=== PATIENT | male | born 1955 | race Caucasian/White ===

== ENCOUNTER 2017-10-23 15:51 | Emergency (ER) | payer OTHER ==
[2015-02-02 09:41] VITALS: Ht 172.7 cm; Wt 81.6 kg
[~2017-10-23] VITALS: Ht 172.7 cm; Wt 81.6 kg
[~2017-10-23 15:51] MED LIST: ASP325 PO; FOLI-68 PO; IBU200 PO; LEVO750T44 PO; LORA-1455 PO; LORA-630 PO; METR-1 PO; MULT-1379 PO; NALT50TA15 PO; ONDA4TAB PO; SIME80TA65 PO; SIMV5TAB56 PO; THIA100T62 PO; VENL75CA58 PO
[2017-10-23] MEDS ORDERED: THIAMINE HCL(*) 200 MG/2 ML IN 100 MG, FOLIC ACID(*) 50 MG/10 ML INJ 1 MG, MULTIVITAMIN... IV ONE ×2 (16:29→16:50)
--- NOTE | 2017-10-23 16:29 | ER Report ---
History and Physical Time Seen By MD: 16:28 Hx. of Stated Complaint: PATIENT STATES HIS LAST DRINK WAS COUPLE OF HOURS AGO; PATIENT STATES THAT HE IS STARTING TO FEEL DETOX EFFECTS COMING ON AND SELF TREATMENT WASNT HELPING SO HE WANTS HELP WITH DETOX HPI/ROS CHIEF COMPLAINT: Alcohol detox HISTORY OF PRESENT ILLNESS: 62-year-old male patient presents to emergency room with complaint of needing to detox from alcohol. Patient states that he has been drinking fairly heavily for the past week. He states that he typically drinks a sixpack a week as well as a half pint to a pint of whiskey on the weekend. Patient states that he's been drinking more over the past week. He states that he will not drink and a few hours later he will feel nauseated and anxious. He will have a drink at that time. He states that he has taken Ativan in the past which seems to have helped. Patient states that he has had a episode of sobriety which lasted 3/2 years in the years [id number]. He states that since then he's been drinking steadily. He states that he would like to quit drinking and would like to be more active in AA. REVIEW OF SYSTEMS: Respiratory: No cough, no dyspnea. Cardiovascular: No chest pain, no palpitations. Gastrointestinal: No vomiting, no abdominal pain. Musculoskeletal: No back pain. Allergies: Coded Allergies: codeine (Verified Allergy, Mild, RASH, 10/23/17) ITCHING AND RASH REACTION oxycodone (Verified Allergy, Unknown, 10/23/17) itching rash Home Meds Discontinued Scripts Lorazepam (LORAZEPAM) 0.5 Mg Tablet, 0.5 MG PO Q4-6H, #10 Prov:BETY CALDWELL STRIPPER AND OPAQUER APPRENTICE 12/14/16 Ondansetron (ZOFRAN ODT) 4 Mg Tab.rapdis, 4 MG PO Q6H, #10 TAB TAKE 1 TABLET BY MOUTH EVERY 6 HOURS Prov:HARITHA HANSEN NP 06/03/16 Lorazepam (ATIVAN) 0.5 Mg Tablet, 0.5 MG PO Q4-6H, #20 TAB Prov:HARITHA HANSEN NP 06/03/16 Metronidazole (FLAGYL) 500 Mg Tablet, 500 MG PO BID, #20 TAB Prov:HARITHA HANSEN NP 06/03/16 Levofloxacin 750 Mg Tab (LEVAQUIN 750 MG TAB) 750 Mg Tablet, 750 MG PO DAILY, # 10 TAB Prov:HARITHA HANSEN STRIPPER AND OPAQUER APPRENTICE 06/03/16 Past Medical/Surgical History Patient has a past medical history of seizures related to alcohol detox, migraines, arthritis, marijuana abuse, alcohol abuse, depression. Patient has surgical history of right shoulder surgery, trigger finger, right knee surgery, Lasik surgery. Hx Smoking: No Smoking Status: Former Smoker Exposure to Second Hand Smoke?: No Hx Substance Use Disorder: Yes (marijuana) Hx Alcohol Use: Yes Constitutional Vital Sign - Last 24 Hours 10/23/17 10/23/17 10/23/17 10/23/17 15:56 15:56 16:00 16:21 Temp 98.4 Pulse 109 92 Resp 17 B/P (MAP) 163/101 (121) 163/101 153/102 (119) Pulse Ox 91 87 O2 Delivery Room Air 10/23/17 10/23/17 10/23/17 10/23/17 16:30 16:51 17:00 17:21 Pulse 90 87 B/P (MAP) 137/95 (109) 131/90 (104) Pulse Ox 87 86 10/23/17 10/23/17 10/23/17 10/23/17 17:30 17:35 18:00 18:05 Pulse 89 101 B/P (MAP) 133/72 (92) 146/91 (109) Pulse Ox 90 94 10/23/17 18:10 Pulse 94 Pulse Ox 93 Intake and Output 10/23/17 10/23/17 10/24/17 15:00 23:00 07:00 Intake Total 1015.2 ml Balance 1015.2 ml Physical Exam General Appearance: The patient is alert, has no immediate need for airway protection and no current signs of toxicity. ENT: Tympanic membranes are pearly-garg, auditory canals are patent, mucous membranes are moist. Respiratory: Chest is non tender, lungs are clear to auscultation. Cardiac: regular rate and rhythm Gastrointestinal: Abdomen is soft and non tender, no masses, bowel sounds normal. Musculoskeletal: Neck: Neck is supple and non tender. Extremities have full range of motion and are non tender. Skin: No rashes or lesions. DIFFERENTIAL DIAGNOSIS: After history and physical exam differential diagnosis was considered for alcohol abuse, alcohol dependence. Medical Decision Making Data Points Result Diagram: 10/23/17 1967 10/23/17 1649 Laboratory Hematology Test 10/23/17 16:49 10/23/17 18:16 Red Blood Count 4.88 M/uL (4.00-5.60) Mean Corpuscular Volume 102.6 fL (80.0-96.0) Mean Corpuscular Hemoglobin 34.9 pg (26.0-33.0) Mean Corpuscular Hemoglobin Concent 34.0 g/dL (32.0-36.0) Red Cell Distribution Width 13.6 % (11.5-14.5) Mean Platelet Volume 7.5 fL (7.2-11.1) Neutrophils (%) (Auto) 67.7 % (39.4-72.5) Lymphocytes (%) (Auto) 23.7 % (17.6-49.6) Monocytes (%) (Auto) 7.8 % (4.1-12.4) Eosinophils (%) (Auto) 0.5 % (0.4-6.7) Basophils (%) (Auto) 0.3 % (0.3-1.4) Nucleated RBC Relative Count (auto) 0.0 /100WBC Neutrophils # (Auto) 4.0 K/uL (2.0-7.4) Lymphocytes # (Auto) 1.4 K/uL (1.3-3.6) Monocytes # (Auto) 0.5 K/uL (0.3-1.0) Eosinophils # (Auto) 0.0 K/uL (0.0-0.5) Basophils # (Auto) 0.0 K/uL (0.0-0.1) Nucleated RBC Absolute Count (auto) 0.00 K/uL Peripheral Blood Smear No Y/N Sodium Level 141 mmol/L (137-145) Potassium Level 4.1 mmol/L (3.5-5.0) Chloride Level 100 mmol/L (98-107) Carbon Dioxide Level 20 mmol/L (22-30) Blood Urea Nitrogen 10 mg/dl (9-21) Creatinine 0.90 mg/dl (0.66-1.25) Glomerular Filtration Rate Calc > 60.0 Random Glucose 87 mg/dl (75-110) Calcium Level 8.8 mg/dl (8.4-10.2) Magnesium Level 2.0 mg/dl (1.7-2.2) Total Bilirubin 0.7 mg/dl (0.2-1.3) Aspartate Amino Transf (AST/SGOT) 75 U/L (0-35) Alanine Aminotransferase (ALT/SGPT) 56 U/L (0-56) Alkaline Phosphatase 84 U/L (0-126) Total Protein 7.8 gm/dl (6.3-8.2) Albumin 4.5 g/dl (3.5-5.0) Salicylates Level < 10 mg/L Salicylate Last Dose Date unk Acetaminophen Level < 10 ug/ml Serum Alcohol 195 mg/dl Urine Color Vianca Urine Clarity Slightly-cloudy Urine pH 5.0 pH (4.8-9.5) Urine Specific Preston 1.021 Urine Protein Negative mg/dL (NEGATIVE) Urine Glucose (UA) Negative mg/dL (NEGATIVE) Urine Ketones 80 mg/dL (NEGATIVE) Urine Blood Negative (NEGATIVE) Urine Nitrite Negative (NEGATIVE) Urine Bilirubin Negative (NEGATIVE) Urine Urobilinogen 2.0 mg/dL (0.2-1.9) Urine Leukocyte Esterase Negative (NEGATIVE) Urine RBC 1 /HPF (0-2/HPF) Urine WBC 1 /HPF (0-5/HPF) Urine Squamous Epithelial Cells Many /LPF (</=FEW) Urine Bacteria Negative /HPF (NONE-FEW) Urine Hyaline Casts Many /LPF (NONE-FEW) Urine Mucus Few /HPF (NONE-FEW) Urine Opiates Screen Negative Urine Barbiturates Screen Negative Ur Tricyclic Antidepressants Screen Negative Urine Phencyclidine Screen Negative Urine Amphetamines Screen Negative Urine Benzodiazepines Screen Negative Urine Cocaine Screen Negative Urine Cannabinoids Screen Positive Chemistry Test 10/23/17 16:49 10/23/17 18:16 White Blood Count 5.9 k/uL (4.5-11.0) Red Blood Count 4.88 M/uL (4.00-5.60) Hemoglobin 17.0 g/dL (14.0-18.0) Hematocrit 50.1 % (42.0-52.0) Mean Corpuscular Volume 102.6 fL (80.0-96.0) Mean Corpuscular Hemoglobin 34.9 pg (26.0-33.0) Mean Corpuscular Hemoglobin Concent 34.0 g/dL (32.0-36.0) Red Cell Distribution Width 13.6 % (11.5-14.5) Platelet Count 150 K/uL (150-450) Mean Platelet Volume 7.5 fL (7.2-11.1) Neutrophils (%) (Auto) 67.7 % (39.4-72.5) Lymphocytes (%) (Auto) 23.7 % (17.6-49.6) Monocytes (%) (Auto) 7.8 % (4.1-12.4) Eosinophils (%) (Auto) 0.5 % (0.4-6.7) Basophils (%) (Auto) 0.3 % (0.3-1.4) Nucleated RBC Relative Count (auto) 0.0 /100WBC Neutrophils # (Auto) 4.0 K/uL (2.0-7.4) Lymphocytes # (Auto) 1.4 K/uL (1.3-3.6) Monocytes # (Auto) 0.5 K/uL (0.3-1.0) Eosinophils # (Auto) 0.0 K/uL (0.0-0.5) Basophils # (Auto) 0.0 K/uL (0.0-0.1) Nucleated RBC Absolute Count (auto) 0.00 K/uL Peripheral Blood Smear No Y/N Glomerular Filtration Rate Calc > 60.0 Calcium Level 8.8 mg/dl (8.4-10.2) Magnesium Level 2.0 mg/dl (1.7-2.2) Total Bilirubin 0.7 mg/dl (0.2-1.3) Aspartate Amino Transf (AST/SGOT) 75 U/L (0-35) Alanine Aminotransferase (ALT/SGPT) 56 U/L (0-56) Alkaline Phosphatase 84 U/L (0-126) Total Protein 7.8 gm/dl (6.3-8.2) Albumin 4.5 g/dl (3.5-5.0) Salicylates Level < 10 mg/L Salicylate Last Dose Date unk Acetaminophen Level < 10 ug/ml Serum Alcohol 195 mg/dl Urine Color Vianca Urine Clarity Slightly-cloudy Urine pH 5.0 pH (4.8-9.5) Urine Specific Preston 1.021 Urine Protein Negative mg/dL (NEGATIVE) Urine Glucose (UA) Negative mg/dL (NEGATIVE) Urine Ketones 80 mg/dL (NEGATIVE) Urine Blood Negative (NEGATIVE) Urine Nitrite Negative (NEGATIVE) Urine Bilirubin Negative (NEGATIVE) Urine Urobilinogen 2.0 mg/dL (0.2-1.9) Urine Leukocyte Esterase Negative (NEGATIVE) Urine RBC 1 /HPF (0-2/HPF) Urine WBC 1 /HPF (0-5/HPF) Urine Squamous Epithelial Cells Many /LPF (</=FEW) Urine Bacteria Negative /HPF (NONE-FEW) Urine Hyaline Casts Many /LPF (NONE-FEW) Urine Mucus Few /HPF (NONE-FEW) Urine Opiates Screen Negative Urine Barbiturates Screen Negative Ur Tricyclic Antidepressants Screen Negative Urine Phencyclidine Screen Negative Urine Amphetamines Screen Negative Urine Benzodiazepines Screen Negative Urine Cocaine Screen Negative Urine Cannabinoids Screen Positive Toxicology Test 10/23/17 16:49 10/23/17 18:16 Salicylates Level < 10 mg/L Salicylate Last Dose Date unk Acetaminophen Level < 10 ug/ml Serum Alcohol 195 mg/dl Urine Opiates Screen Negative Urine Barbiturates Screen Negative Ur Tricyclic Antidepressants Screen Negative Urine Phencyclidine Screen Negative Urine Amphetamines Screen Negative Urine Benzodiazepines Screen Negative Urine Cocaine Screen Negative Urine Cannabinoids Screen Positive Urinalysis Test 10/23/17 18:16 Urine Color Vianca Urine Clarity Slightly-cloudy Urine pH 5.0 pH (4.8-9.5) Urine Specific Preston 1.021 Urine Protein Negative mg/dL (NEGATIVE) Urine Glucose (UA) Negative mg/dL (NEGATIVE) Urine Ketones 80 mg/dL (NEGATIVE) Urine Blood Negative (NEGATIVE) Urine Nitrite Negative (NEGATIVE) Urine Bilirubin Negative (NEGATIVE) Urine Urobilinogen 2.0 mg/dL (0.2-1.9) Urine Leukocyte Esterase Negative (NEGATIVE) Urine RBC 1 /HPF (0-2/HPF) Urine WBC 1 /HPF (0-5/HPF) Urine Squamous Epithelial Cells Many /LPF (</=FEW) Urine Bacteria Negative /HPF (NONE-FEW) Urine Hyaline Casts Many /LPF (NONE-FEW) Urine Mucus Few /HPF (NONE-FEW) ED Course/Re-evaluation ED Course Patient was admitted to exam room, history and physical were obtained. Differential diagnoses were considered. Lab work for a behavioral health admission were done. Labs were unremarkable except for the patient had an MCV of 102, was also positive for cannabis on his drug screen. An IV was started and patient received a liter of a banana bag. Patient stated that he was starting to feel nauseated and received all grams of Zofran and half milligram of Ativan which seemed to help considerably. Patient tolerated that well and was finally able to give us urine sample. Which time I did discuss the case with Dr. Smiley, psychiatrist, who agreed to accept the patient for admission with a diagnosis of alcohol dependence. Discusses patient who verbalized understanding and agreement. Decision to Disposition Date: Oct 23, 2017 Decision to Disposition Time: 19:38 Depart Departure Latest Vital Signs Vital Signs Date Time Temp Pulse Resp B/P (MAP) Pulse Ox O2 Delivery O2 Flow Rate FiO2 10/23/17 18:10 94 93 10/23/17 18:00 146/91 (109) 10/23/17 15:56 98.4 17 Room Air Impression: Primary Impression: Alcohol abuse Condition: Condition Unchanged Disposition: XFER TO [facility] Referrals: MARCELINO BATRES DO (PCP) FILIBERTO STACK Oct 23, 2017 16:29
[2017-10-23 16:56] LABS: PLATELET COUNT, AUTOMATED 150 K/uL (150-450)
[2017-10-23] MEDS ORDERED: ONDANSETRON 4 MG/2 ML VIAL IVP ONE (17:30)
[2017-10-23] MEDS ORDERED: LORazepam 2 MG/ML VIAL IVP ONE (17:30)
[2017-10-23 18:00] VITALS: BP 146/91
== END 2017-10-23 20:00 ==
LOC: ER 15:58
DX: F10.20 Alcohol dependence, uncomplicated (principal); F12.90 Cannabis use, unspecified, uncomplicated; F32.9 Major depressive disorder, single episode, unspecified
CPT/HCPCS: 80305; 80320; 80329; 81001; 83735; 84443; 85025; 99285; J2060; J2405; J3411; J3475; J7030; 82040; 82247; 82310; 82374; 82435; 82565; 82947; 84075; 84132; 84155; 84295; 84450; 84460; 84520; 96365; 96375

== ENCOUNTER 2017-10-23 19:47 | Inpatient (IN) | payer OTHER ==
[2015-02-02 09:41] VITALS: Ht 172.7 cm; Wt 81.6 kg
[~2017-10-23] VITALS: Ht 172.7 cm; Wt 81.6 kg
[2017-10-23 20:29] VITALS: BP 150/88
[2017-10-23] MEDS ORDERED: DIAZEPAM 10 MG TAB PO PRN ×2 (21:30)
[2017-10-23] MEDS ORDERED: ACETAMINOPHEN 325 MG TAB PO PRN (22:10)
[2017-10-23] MEDS ORDERED: MAG HYD/AL HYD/SIMETH 30ML UDC PO PRN (22:10)
[2017-10-24 06:14] VITALS: BP 142/78
[2017-10-24 08:00] VITALS: BP 141/81
[2017-10-24] MEDS: THIAMINE HCL 100 MG TAB PO SCH (08:09)
[2017-10-24] MEDS: FOLIC ACID 1 MG TAB PO SCH (08:09)
[2017-10-24] MEDS: MULTIVITAMINS PO SCH ×2 (08:37→12:51)
[2017-10-24 16:30] VITALS: BP 136/82
[2017-10-24 21:09] VITALS: BP 138/89
[2017-10-24] MEDS: MELATONIN 3 MG TAB PO SCH (21:10)
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
[2017-10-25 06:15] VITALS: BP 132/79
[2017-10-25] MEDS: MULTIVITAMINS PO SCH (08:20)
[2017-10-25] MEDS: FOLIC ACID 1 MG TAB PO SCH (08:20)
[2017-10-25] MEDS: THIAMINE HCL 100 MG TAB PO SCH (08:20)
[2017-10-25 10:00] VITALS: BP 137/89
[2017-10-25] MEDS ORDERED: MELA1TAB9 PO (10:04)
[2017-10-25] MEDS ORDERED: MELA1TAB23 PO (10:05)
[2017-10-25] MEDS: buPROPion XL 150 MG TABCR PO SCH (12:15)
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
[2017-10-25 18:27] VITALS: BP 137/77
[2017-10-25 20:22] VITALS: BP 125/87
[2017-10-25] MEDS: MELATONIN 3 MG TAB PO SCH (20:25)
[2017-10-26] MEDS: FOLIC ACID 1 MG TAB PO SCH (08:18)
[2017-10-26] MEDS: THIAMINE HCL 100 MG TAB PO SCH (08:18)
[2017-10-26] MEDS: MULTIVITAMINS PO SCH (08:18)
[2017-10-26] MEDS: buPROPion XL 150 MG TABCR PO SCH (08:19)
[2017-10-26] MEDS ORDERED: FOLI-68 PO (12:14)
[2017-10-26] MEDS ORDERED: MULT-865 PO (12:15)
[2017-10-26] MEDS ORDERED: THIA100T62 PO (12:15)
[2017-10-26] MEDS ORDERED: BUPR-472 PO (12:18)
[2017-10-26 12:44] VITALS: BP 159/103
--- NOTE | 2017-10-27 16:39 | DISCHARGE SUMMARY ---
FINAL DIAGNOSES PER DSM V 1. Alcohol use disorder, severe. 2. Posttraumatic stress disorder. 3. Alcohol withdrawal, considered complete. 4. Stressors related to illness. REASON FOR ADMISSION This is a patient who was seen on 26 October 2017 at approximately 1100 hours. Please see H and P for full details. The patient is a very pleasant 62-year- old male who has been on the Behavioral Health Unit before under similar circumstances. The patient presents voluntarily for alcohol withdrawal. The patient's alcohol withdrawal was noted to be very mild in nature and resolved fairly quickly. The patient's mood remained stable. The patient had a previous diagnosis of posttraumatic stress disorder, which he states continues to improve. The patient was started on Wellbutrin 150 mg XL daily with good results. The patient was continued on folic acid and thiamine for elevations in MCV and MCH. The patient continued to improve. He took an active roll in his treatment. The patient was discharged to home. PHYSICAL EXAMINATION Please see emergency room note. Notable for: GENERAL: A 62-year-old male in no acute medical distress. VITAL SIGNS: At time of admission, temperature 98.4, pulse 109, respiratory rate 17, blood pressure 163/101, pulse oximetry 91% on room air. At time of discharge from the Behavioral Health Unit, vital signs showed temperature 98.0, pulse 90, respiratory rate 16, blood pressure 159/103, and pulse oximetry 95% on room air. LABORATORY DATA At time of admission: 1. CBC notable for MCV elevated at 102.6, MCH elevated at 34.9. 2. Chemistry panel notable for mild elevation in AST at 75. Otherwise, unremarkable CMP. 3. TSH within normal limits of 0.67. 4. Urinalysis did show urine ketones present; otherwise unremarkable. 5. Toxicology screen was positive for cannabis as well as a serum alcohol level of 195. MENTAL STATUS EXAMINATION ON DISCHARGE GENERAL APPEARANCE, BEHAVIOR, AND ATTITUDE: This is a polite, cooperative, 62- year-old male who appears stated age, making good eye contact. No bizarre mannerisms or tics. No psychomotor agitation or retardation. SPEECH: Within normal limits. Regular rate, rhythm, volume, and tone. MOOD: Described as good. AFFECT: Full and bright. THOUGHT PROCESSES: Goal directed, logical. No loose associations or flight of ideas. THOUGHT CONTENT: Free of auditory or visual hallucinations, ideas of reference , thought broadcasting, delusions, obsessions, compulsions. The patient is adamantly denying suicidal or homicidal ideations. SENSORIUM: Clear. COGNITION: Alert and oriented to person, place, time, and situation. MEMORY: Immediate, recent, and remote estimated intact. INTELLIGENCE: Average based on interview. INSIGHT AND JUDGMENT: Considered grossly intact in the absence of alcohol use. RESULTS OF TESTING 1. Imaging: None. 2. Laboratory data: See above. CONSULTATIONS None. TREATMENT The patient received medications and participated in individual and group therapy. HOSPITAL COURSE Again, the patient's alcohol withdrawal was considered very mild in nature. The patient continued to improve. He was started on Wellbutrin XL 150 mg for depressive symptoms and to help with addiction to alcohol. The patient tolerated this well. He remained on folic acid and thiamine. He continued to improve. The patient was discharged to home. CONDITION OF PATIENT ON DISCHARGE Stable. Considered minimal risk to himself or others and appropriate for outpatient care. DISPOSITION The patient was discharged to home. Follow up with outpatient medication management and therapy. He agreed to abstain from alcohol and all illicit substances including cannabis. The patient would go with and obtain a sponsor. He was given the crisis line should symptoms return. DISCHARGE MEDICATIONS 1. Wellbutrin 150 mg XL p.o. q.a.m. 2. Folic acid 1 mg daily. 3. Thiamine 100 mg daily. 4. The patient would remain on a multivitamin with minerals daily. 5. The patient could take melatonin [id number] at night to help with any insomnia. Risks, benefits, and alternatives of above discharge plan were discussed. Informed consent was given to proceed with the above discharge plan by this competent patient. YULI
== END 2017-10-26 17:07 | disposition home or self-care (01) | DRG 897 ==
LOC: BHS 19:47
PROVIDERS: ADMIT Psychiatry & Neurology Psychiatry; ATTEND Psychiatry & Neurology Psychiatry
DX: F10.230 Alcohol dependence with withdrawal, uncomplicated (principal); F43.12 Post-traumatic stress disorder, chronic; F12.90 Cannabis use, unspecified, uncomplicated; F32.9 Major depressive disorder, single episode, unspecified; G47.00 Insomnia, unspecified; Y90.6 Blood alcohol level of 120-199 mg/100 ml; Z88.5 Allergy status to narcotic agent; Z88.8 Allergy status to other drugs, medicaments and biological substances; Z73.3 Stress, not elsewhere classified
CPT/HCPCS: 90853

== ENCOUNTER → 2018-05-06 | Outpatient (CLI) | payer OTHER ==
[2015-02-02 09:41] VITALS: BMI 26.6
[~2018-05-06] MED LIST changes: +BUPR-472 PO; +MELA1TAB23 PO; +MELA1TAB9 PO; +MULT-865 PO
--- NOTE | 2018-05-06 15:17 | RADIOLOGY IMAGING REPORT ---
FACILITY: [facility] PATIENT NAME: Richy Metzger : 1955 MR: [id number] V: [id number] EXAM DATE: ORDERING PHYSICIAN: MARCELINO BATRES TECHNOLOGIST: Location: [facility] Patient: Richy Metzger : 1955 Visit/Account:[id number] Date of Sevice: 05/06/2018 FOOT 2 VIEW BILATERAL Indication: Bilateral foot pain. Comparison: None. Findings: Left foot: Phalanges metatarsal and tarsal bones demonstrate normal mineralization. Joint spaces are smooth. The soft tissues are normal. Right foot: The phalanges metatarsal and tarsal bones demonstrate normal mineralization and alignment . Soft tissues are normal. IMPRESSION: Normal right and left foot radiograph. Report Dictated By: Rhys Calderon at 05/06/2018 3:13 PM Report E-Signed By: Rhys Calderon at 05/06/2018 3:14 PM WSN:[id number]
== END ==
LOC: RAD 13:38
PROVIDERS: ATTEND Family Medicine
DX: M79.671 Pain in right foot (principal); M79.672 Pain in left foot

== ENCOUNTER 2018-08-30 09:06 | Emergency (ER) | payer OTHER ==
[2015-02-02 09:41] VITALS: Wt 83.9 kg
[2018-08-30] MEDS ORDERED: DIAZEPAM 10 MG TAB PO ONE (09:10)
--- NOTE | 2018-08-30 09:20 | EKG ---
FACILITY: [facility] [place] PATIENT NAME: LUCA ESTRADA : [id number] MR: [id number] V: [id number] EXAM DATE: ORDERING PHYSICIAN: JOSELIN CASTRO TECHNOLOGIST: KELLY Veliz Reason : ETOH Blood Pressure : / mmHG Vent. Rate : 095 BPM Atrial Rate : 095 BPM P-R Int : 156 ms QRS Dur : 086 ms QT Int : 350 ms P-R-T Axes : 072 067 073 degrees QTc Int : 439 ms Normal sinus rhythm T wave abnormality, consider anterior ischemia Abnormal ECG When compared with ECG of 14-JAN-2015 15:58, No significant change was found Confirmed by GERALDINE BROWN ([id number]) on 08/30/2018 9:37:13 PM Referred By: GLORIA Confirmed By:GERALDINE BROWN
[2018-08-30 09:31] LABS: PLATELET COUNT, AUTOMATED 165 K/uL (150-450)
--- NOTE | 2018-08-30 09:33 | ER Report ---
History and Physical Time Seen By MD: 09:20 Hx. of Stated Complaint: PATIENT REPORTS THAT HE NEEDS TO STOP DRINKING. LAST DRINK WAS AT 0400 THIS MORNING HPI/ROS CHIEF COMPLAINT: Alcohol withdrawal HISTORY OF PRESENT ILLNESS: Patient is a 62-year-old male who comes into the emergency department experiencing acute alcohol withdrawal and requesting detox. Patient has had multiple admissions in the past for alcohol detox. Last was in September 2017. Prior to that he was seen in January 2015 and did inpatient rehabilitation for 56 days. He does have periods of sobriety and does attend AA but states that he doesn't follow through with working the steps. He denies any suicidal or homicidal ideation. He states he drinks approximately 8-12 beers daily and occasionally drinks a pint of [place] [employer]am. Patient states he voluntarily wants to be admitted for alcohol detox at this time. Patient states his last drink was a beer at 4 AM this morning REVIEW OF SYSTEMS: Constitutional: No fever, no chills. Eyes: No discharge. ENT: No sore throat. Cardiovascular: No chest pain, no palpitations. Respiratory: No cough, no shortness of breath. Gastrointestinal: No abdominal pain, no vomiting. Genitourinary: No hematuria. Musculoskeletal: No back pain. Skin: No rashes. Neurological: No headache. Psychiatric: Feeling anxious, no suicidal or homicidal thoughts. Allergies: Coded Allergies: codeine (Verified Allergy, Mild, RASH, 10/23/17) ITCHING AND RASH REACTION oxycodone (Verified Allergy, Unknown, 10/23/17) itching rash Home Meds Discontinued Reported Medications Bupropion Hcl (WELLBUTRIN XL) 150 Mg Tab.er.24h, 150 MG PO QDAY, TAB 10/26/17 Multivitamin (DAILY MULTIPLE VITAMIN) 1 Each Tablet, 1 EACH PO DAILY 10/26/17 Thiamine Hcl (THIAMINE HCL) 100 Mg Tablet, 100 MG PO DAILY 10/26/17 Folic Acid (FOLIC ACID) 1 Mg Tablet, 1 MG PO QDAY, TAB 10/26/17 Melatonin (MELATONIN) 1 Mg Tablet, 1 MG PO QHS 10/25/17 Past Medical/Surgical History Past medical history for diverticulitis, history of alcohol abuse Hx Smoking: No Smoking Status: Former Smoker Exposure to Second Hand Smoke?: No Hx Substance Use Disorder: Yes (marijuana) Hx Alcohol Use: Yes Constitutional Vital Sign - Last 24 Hours 08/30/18 08/30/18 09:10 10:52 Temp 98.2 Pulse 97 84 Resp 24 B/P (MAP) 138/93 133/102 (112) Pulse Ox 92 95 O2 Delivery Room Air Nasal Cannula O2 Flow Rate 1 Physical Exam General Appearance: The patient is alert, has no immediate need for airway protection and no signs of toxicity. [ ] Eyes: Pupils equal and round no pallor or injection. ENT, Mouth: Mucous membranes are moist. Respiratory: There are no retractions, lungs are clear to auscultation. Cardiovascular: Regular rate and rhythm. [ ] Gastrointestinal: Abdomen is soft and non tender, no masses, bowel sounds normal. Neurological: Awake and alert Skin: Warm and dry, no rashes. Musculoskeletal: Neck is supple non tender. Extremities are nontender, nonswollen and have full range of motion. Medical Decision Making Data Points Result Diagram: 08/30/1892308/30/1824 Laboratory Hematology Test 08/30/18 09:24 Red Blood Count 4.69 M/uL (4.00-5.60) Mean Corpuscular Volume 105.9 fL (80.0-96.0) Mean Corpuscular Hemoglobin 36.1 pg (26.0-33.0) Mean Corpuscular Hemoglobin Concent 34.1 g/dL (32.0-36.0) Red Cell Distribution Width 14.6 % (11.5-14.5) Mean Platelet Volume 7.2 fL (7.2-11.1) Neutrophils (%) (Auto) 61.5 % (39.4-72.5) Lymphocytes (%) (Auto) 27.4 % (17.6-49.6) Monocytes (%) (Auto) 10.1 % (4.1-12.4) Eosinophils (%) (Auto) 0.4 % (0.4-6.7) Basophils (%) (Auto) 0.6 % (0.3-1.4) Nucleated RBC Relative Count (auto) 0.0 /100WBC Neutrophils # (Auto) 2.6 K/uL (2.0-7.4) Lymphocytes # (Auto) 1.2 K/uL (1.3-3.6) Monocytes # (Auto) 0.4 K/uL (0.3-1.0) Eosinophils # (Auto) 0.0 K/uL (0.0-0.5) Basophils # (Auto) 0.0 K/uL (0.0-0.1) Nucleated RBC Absolute Count (auto) 0.00 K/uL Sodium Level 138 mmol/L (137-145) Potassium Level 4.0 mmol/L (3.5-5.0) Chloride Level 102 mmol/L (98-107) Carbon Dioxide Level 21 mmol/L (22-30) Blood Urea Nitrogen 10 mg/dl (9-21) Creatinine 0.90 mg/dl (0.66-1.25) Glomerular Filtration Rate Calc > 60.0 Random Glucose 84 mg/dl (75-110) Calcium Level 8.8 mg/dl (8.4-10.2) Magnesium Level 2.1 mg/dl (1.7-2.2) Total Bilirubin 0.5 mg/dl (0.2-1.3) Aspartate Amino Transf (AST/SGOT) 101 U/L (0-35) Alanine Aminotransferase (ALT/SGPT) 57 U/L (0-56) Alkaline Phosphatase 70 U/L (0-126) Total Protein 7.7 g/dl (6.3-8.2) Albumin 4.4 g/dl (3.5-5.0) Thyroid Stimulating Hormone (TSH) 1.01 uIU/ml (0.46-4.68) Salicylates Level < 10 mg/L Salicylate Last Dose Date unk Acetaminophen Level < 10 ug/ml Serum Alcohol 135 mg/dl Chemistry Test 08/30/18 09:24 White Blood Count 4.2 k/uL (4.5-11.0) Red Blood Count 4.69 M/uL (4.00-5.60) Hemoglobin 17.0 g/dL (14.0-18.0) Hematocrit 49.6 % (42.0-52.0) Mean Corpuscular Volume 105.9 fL (80.0-96.0) Mean Corpuscular Hemoglobin 36.1 pg (26.0-33.0) Mean Corpuscular Hemoglobin Concent 34.1 g/dL (32.0-36.0) Red Cell Distribution Width 14.6 % (11.5-14.5) Platelet Count 165 K/uL (150-450) Mean Platelet Volume 7.2 fL (7.2-11.1) Neutrophils (%) (Auto) 61.5 % (39.4-72.5) Lymphocytes (%) (Auto) 27.4 % (17.6-49.6) Monocytes (%) (Auto) 10.1 % (4.1-12.4) Eosinophils (%) (Auto) 0.4 % (0.4-6.7) Basophils (%) (Auto) 0.6 % (0.3-1.4) Nucleated RBC Relative Count (auto) 0.0 /100WBC Neutrophils # (Auto) 2.6 K/uL (2.0-7.4) Lymphocytes # (Auto) 1.2 K/uL (1.3-3.6) Monocytes # (Auto) 0.4 K/uL (0.3-1.0) Eosinophils # (Auto) 0.0 K/uL (0.0-0.5) Basophils # (Auto) 0.0 K/uL (0.0-0.1) Nucleated RBC Absolute Count (auto) 0.00 K/uL Glomerular Filtration Rate Calc > 60.0 Calcium Level 8.8 mg/dl (8.4-10.2) Magnesium Level 2.1 mg/dl (1.7-2.2) Total Bilirubin 0.5 mg/dl (0.2-1.3) Aspartate Amino Transf (AST/SGOT) 101 U/L (0-35) Alanine Aminotransferase (ALT/SGPT) 57 U/L (0-56) Alkaline Phosphatase 70 U/L (0-126) Total Protein 7.7 g/dl (6.3-8.2) Albumin 4.4 g/dl (3.5-5.0) Thyroid Stimulating Hormone (TSH) 1.01 uIU/ml (0.46-4.68) Salicylates Level < 10 mg/L Salicylate Last Dose Date unk Acetaminophen Level < 10 ug/ml Serum Alcohol 135 mg/dl Toxicology Test 08/30/18 09:24 Salicylates Level < 10 mg/L Salicylate Last Dose Date unk Acetaminophen Level < 10 ug/ml Serum Alcohol 135 mg/dl ED Course/Re-evaluation ED Course 08/30/2018 9:33:19 am and is cooperative at this time requesting voluntary admission for alcohol detox. We'll give 10 mg of oral Valium will perform medical screening exam. Initial CIWA scores 13. 08/30/2018 10:49:46 am patient states now that he no longer wishes to be admitted. States that he will start to go to AA meetings and nose are some tools to help deal with stress and avoid alcohol. Patient is not suicidal or homicidal. He is completely competent and able to make his own medical decisions based on my evaluation. Patient understands he may return at any time. We'll discharge to home at this time Decision to Disposition Date: Aug 30, 2018 Decision to Disposition Time: 10:50 Depart Departure Latest Vital Signs Vital Signs Date Time Temp Pulse Resp B/P (MAP) Pulse Ox O2 Delivery O2 Flow Rate FiO2 08/30/18 10:52 84 133/102 (112) 95 Nasal Cannula 1 08/30/18 09:10 98.2 24 Impression: Primary Impression: Alcohol withdrawal Additional Impression: Alcohol abuse Condition: Improved Disposition: HOME OR SELF-CARE Referrals: MARCELINO BATRES DO (PCP) schedule a follow up appointment for routine health maintenance New Scripts No Active Prescriptions or Reported Meds Patient Instructions: Alcohol Dependence (ED) Additional Instructions: Return to the emergency department at any time if you feel you wish get inpatient treatment for your alcohol abuse. Problem Qualifiers Primary Impression: Alcohol withdrawal Complication of substance-induced condition: uncomplicated Qualified Codes: F10.230 - Alcohol dependence with withdrawal, uncomplicated JOSELIN CASTRO MD Aug 30, 2018 09:33
[2018-08-30 10:52] VITALS: BP 133/102
== END 2018-08-30 11:05 | disposition home or self-care (01) ==
LOC: ER 09:45
DX: F10.230 Alcohol dependence with withdrawal, uncomplicated (principal); R94.31 Abnormal electrocardiogram [ECG] [EKG]
CPT/HCPCS: 36415; 80320; 80329; 82040; 82247; 82310; 82374; 82435; 82565; 82947; 83735; 84075; 84132; 84155; 84295; 84443; 84450; 84460; 84520; 85025; 93005; 99283

== ENCOUNTER 2018-08-30 16:07 | Emergency (ER) | payer OTHER ==
[2015-02-02 09:41] VITALS: Wt 99.8 kg
[2018-08-30] MEDS ORDERED: LORazepam 2 MG/ML VIAL IVP ONE (16:25)
[2018-08-30] MEDS ORDERED: MULTIVITAMINS(*) 10 ML VIAL 10 ML, THIAMINE HCL(*) 200 MG/2 ML IN 100 MG, FOLIC ACID(*)... IV ONE (16:25)
[2018-08-30] MEDS ORDERED: ONDANSETRON 4 MG/2 ML VIAL IVP ONE (16:25)
[2018-08-30] MEDS ORDERED: THIAMINE HCL 200 MG/2 ML INJ ONE (16:33)
[2018-08-30] MEDS ORDERED: MAGNESIUM SUL 50% 1GM/2ML VIAL ONE (16:33)
--- NOTE | 2018-08-30 16:38 | ER Report ---
History and Physical Time Seen By MD: 16:20 HPI/ROS CHIEF COMPLAINT: alcohol withdrawl HISTORY OF PRESENT ILLNESS: PT states he has been an alcoholic most of his life. Had a period of 3 yrs of sobriety but that was years ago. Pt states he has been trying to stop on his own but has not been able. He did have 3 days of sobriety a few weeks ago but felt so nauseated and shaky that he started to drink again. Pt came to ed this am and thought he was going to sign in but decided to leave. Pt states that was a mistake. Pt feels shaky and nauseated. Pt states he drank 1/2 a beer between his prior visit to see if it would help symptoms but did not help. Not suicidal or homicidal. REVIEW OF SYSTEMS: Constitutional: No fever, no chills. Eyes: No discharge. ENT: No sore throat. Cardiovascular: No chest pain, no palpitations. Respiratory: No cough, no shortness of breath. Gastrointestinal: No abdominal pain, no vomiting, + nauseated Genitourinary: No hematuria. Musculoskeletal: No back pain. Skin: No rashes. Neurological: No headache, + tremors Psych: depressed, not suicidal Allergies: Coded Allergies: codeine (Verified Allergy, Mild, RASH, 10/23/17) ITCHING AND RASH REACTION oxycodone (Verified Allergy, Unknown, 10/23/17) itching rash Home Meds Discontinued Reported Medications Bupropion Hcl (WELLBUTRIN XL) 150 Mg Tab.er.24h, 150 MG PO QDAY, TAB 10/26/17 Multivitamin (DAILY MULTIPLE VITAMIN) 1 Each Tablet, 1 EACH PO DAILY 10/26/17 Thiamine Hcl (THIAMINE HCL) 100 Mg Tablet, 100 MG PO DAILY 10/26/17 Folic Acid (FOLIC ACID) 1 Mg Tablet, 1 MG PO QDAY, TAB 10/26/17 Melatonin (MELATONIN) 1 Mg Tablet, 1 MG PO QHS 10/25/17 Past Medical/Surgical History pmhx: diverticulitis, alcoholism Hx Smoking: No Smoking Status: Former Smoker Exposure to Second Hand Smoke?: No Hx Substance Use Disorder: Yes (marijuana) Hx Alcohol Use: Yes Constitutional Vital Sign - Last 24 Hours 08/30/18 08/30/18 08/30/18 08/30/18 16:07 16:15 16:15 16:22 Temp 98.3 Pulse ??? 82 93 Resp 16 B/P (MAP) 138/84 161/104 (123) Pulse Ox 86 92 O2 Delivery Room Air 08/30/18 08/30/18 08/30/18 08/30/18 16:30 16:37 16:52 17:00 Pulse 95 86 B/P (MAP) 139/86 (103) 134/78 (96) Pulse Ox 93 87 08/30/18 08/30/18 08/30/18 08/30/18 17:07 17:22 17:30 17:37 Pulse 83 99 88 B/P (MAP) 135/81 (99) Pulse Ox 92 94 90 08/30/18 17:52 Pulse 87 Pulse Ox 90 Intake and Output 08/30/18 08/30/18 08/31/18 15:00 23:00 07:00 Intake Total 1000 ml Balance 1000 ml Physical Exam General Appearance: The patient is alert, has no immediate need for airway protection and no signs of toxicity. Eyes: Pupils equal and round no pallor or injection, EOMI ENT: no pharyngeal erythema or exudates, Mucous membranes are moist Respiratory: There are no retractions, lungs are clear to auscultation. Cardiovascular: Regular rate and rhythm. pulses are equal and symmetrical Gastrointestinal: Abdomen is soft and non tender, no masses, bowel sounds normal, no guarding, no rigidity or rebound Neurological: Cranial nerves II-XII grossly intact, no sensory or motor loss, + tremor Skin: Warm and dry, no rashes. Musculoskeletal: Neck is supple non tender, no vertebral tenderness Extremities are nontender, non swollen and have full range of motion. DIFFERENTIAL DIAGNOSIS: After history and physical exam differential diagnosis was considered for alcohol withdrawl, alcoholism Medical Decision Making Data Points Laboratory Hematology Test 08/30/18 16:20 08/30/18 18:04 Serum Alcohol 36 mg/dl Urine Opiates Screen Negative Urine Barbiturates Screen Negative Ur Tricyclic Antidepressants Screen Negative Urine Phencyclidine Screen Negative Urine Amphetamines Screen Negative Urine Benzodiazepines Screen Negative Urine Cocaine Screen Negative Urine Cannabinoids Screen Positive Chemistry Test 08/30/18 16:20 08/30/18 18:04 Serum Alcohol 36 mg/dl Urine Opiates Screen Negative Urine Barbiturates Screen Negative Ur Tricyclic Antidepressants Screen Negative Urine Phencyclidine Screen Negative Urine Amphetamines Screen Negative Urine Benzodiazepines Screen Negative Urine Cocaine Screen Negative Urine Cannabinoids Screen Positive Toxicology Test 08/30/18 16:20 08/30/18 18:04 Serum Alcohol 36 mg/dl Urine Opiates Screen Negative Urine Barbiturates Screen Negative Ur Tricyclic Antidepressants Screen Negative Urine Phencyclidine Screen Negative Urine Amphetamines Screen Negative Urine Benzodiazepines Screen Negative Urine Cocaine Screen Negative Urine Cannabinoids Screen Positive ED Course/Re-evaluation Clinical Indication for ER IV: IV Access ED Course Start a banana bag and give ativan. will recheck etoh level however the remainder of the labs were checked less then 12 hours ago. 08/30/2018 5:02:23 pm Pts etoh level is 36 currently. Will speak with dr. West Decision to Disposition Date: Aug 30, 2018 Decision to Disposition Time: 17:15 Depart Departure Latest Vital Signs Vital Signs Date Time Temp Pulse Resp B/P (MAP) Pulse Ox O2 Delivery O2 Flow Rate FiO2 08/30/18 17:52 87 90 08/30/18 17:30 135/81 (99) 08/30/18 16:15 98.3 16 Room Air Impression: Primary Impression: Alcohol use disorder, severe, dependence Condition: Condition Unchanged Disposition: [facility] TO [facility] Referrals: MARCELINO BATRES DO (PCP) New Scripts No Active Prescriptions or Reported Meds PAYAL LOZANO DO Aug 30, 2018 16:38
[2018-08-30] MEDS ORDERED: MULTIVITAMINS 10 ML VIAL IV ONE (16:41)
[2018-08-30 17:30] VITALS: BP 135/81
== END 2018-08-30 18:29 ==
LOC: ER 16:42
DX: F10.239 Alcohol dependence with withdrawal, unspecified (principal); Y90.1 Blood alcohol level of 20-39 mg/100 ml
CPT/HCPCS: 80305; 80320; 96365; 96366; 96375; 99284; J2060; J2405; J3411; J3475; J7030

== ENCOUNTER 2018-08-30 17:52 | Inpatient (IN) | payer OTHER ==
[2015-02-02 09:41] VITALS: Ht 172.7 cm; Wt 83.9 kg
[~2018-08-30] VITALS: Ht 172.7 cm; Wt 83.9 kg
[2018-08-30] MEDS ORDERED: DIAZEPAM 10 MG TAB PO PRN (18:40)
[2018-08-30] MEDS ORDERED: MAG HYD/AL HYD/SIMETH 30ML UDC PO PRN (18:45)
[2018-08-30 19:07] VITALS: BP 146/75
[2018-08-30] MEDS: DIAZEPAM 10 MG TAB PO PRN (19:50)
[2018-08-31 01:07] VITALS: BP 113/64
[2018-08-31] MEDS: DIAZEPAM 10 MG TAB PO PRN ×3 (01:16→20:45)
[2018-08-31 05:20] VITALS: BP 133/82
[2018-08-31 07:45] VITALS: BP 108/78
[2018-08-31] MEDS: FOLIC ACID 1 MG TAB PO SCH (08:21)
[2018-08-31] MEDS: THIAMINE HCL 100 MG TAB PO SCH (08:21)
[2018-08-31] MEDS: MULTIVITAMINS PO SCH (08:21)
[2018-08-31 12:15] VITALS: BP 114/76
[2018-08-31] MEDS ORDERED: LOPERAMIDE HCL 2 MG CAP PO PRN (12:25)
[2018-08-31] MEDS ORDERED: LOPERAMIDE HCL 2 MG CAP PO ONE (12:25)
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
[2018-08-31 16:05] VITALS: BP 100/60
[2018-08-31 20:07] VITALS: BP 100/58
[2018-09-01 04:55] VITALS: BP 112/77
[2018-09-01] MEDS: THIAMINE HCL 100 MG TAB PO SCH (08:05)
[2018-09-01] MEDS: MULTIVITAMINS PO SCH (08:06)
[2018-09-01] MEDS: FOLIC ACID 1 MG TAB PO SCH (08:06)
[2018-09-01 09:00] VITALS: BP 128/64
--- NOTE | 2018-09-01 09:45 | BHS Progress Note ---
[facility] - Subjective Progress Notes Subjective Patient in good spirits today, alcohol withdrawal ongoing, patient will likely be able to discharge tomorrow afternoon. Will start trazodone tonight at 100mg. Appetite good. Will continue treatment. Patient did not want AA representatives to meet on the unit with him, but intends to attend AA upon discharge. No other concerns today. Suicidal Ideation: None Homicidal Ideation: None [facility] - Objective Physical Exam Vital Signs Vital Signs Date Time Temp Pulse Resp B/P (MAP) Pulse Ox O2 Delivery O2 Flow Rate FiO2 09/01/18 09:00 97.9 88 18 128/64 (85) 92 Room Air 08/31/18 05:20 2.0 Muscle Strength and Tone: WNL Gait and Station: Steady [facility] Medications Reviewed: Side Effects, Benefits of Medication, Risks Allergies Reviewed: Yes Mental Status Exam General Appearance: Casual, Well Groomed, Good Eye Contact, Cooperative, Polite, Good Interaction; No Unkept, No Tearful, No Psychomotor Agitation, No Psychomotor Retardation, No Bizarre Mannerisms, No Tics Speech: Clear, Spontaneous, Normal Rate, Normal Rhythm, Normal Volume (low), Normal Tone; No Garbled, No Rambling, No Inappropriate Mood: Dysthmic/Depressed (frustrated but improving) Affect: Calm, Neutral; No Tearful, No Anxious, No Agitated Thought Process: Organized, Logical, Goal Directed; No Loose Associations, No Flight of Ideas Thought Content: No Suicidal Ideation, No Homicidal Ideation, No Delusions, No Auditory Halllucinations, No Visual Hallucinations, No Thought Broadcasting, No Ideas of Reference, No Obsessions, No Compulsions Sensorium: Clear Cognition: Alert & Oriented-Person, Alert & Oriented-Place, Alert & Oriented- Time, Abxra-Ueqvdlbh-Hwyoothlu Memory: Immediate, Recent, Remote Intelligence: Average Insight Judgment: Fair (in absence of alcohol) [facility] Assessment and Plan [id number] Encounter Date: Sep 01, 2018 [id number] Encounter Time: 09:40 [facility] Plan: Necessary Precautions, Individual/Group Therapy, Admin/Titrate Meds, Educate Patient Tobacco Medications: Not Appropriate Condition Multpiple Antipsychotics Used: No Problems: (1) Alcohol withdrawal Status: Acute (2) Alcohol use disorder, severe, dependence Status: Chronic (3) Posttraumatic stress disorder Optional Permanent Comment: nearing resolution compared to past visits Last Edited By: Ayesha Fuller on Sep 01, 2018 09:40 Status: Chronic Condition 1. start trazadone tonight. 2. plan for discharge tomorrow afternoon. 3. continue treatment. Problem Qualifiers (1) Alcohol withdrawal: Complication of substance-induced condition: uncomplicated Qualified Codes: F10.230 - Alcohol dependence with withdrawal, uncomplicated AYESHA FULLER MD Sep 01, 2018 09:45
[2018-09-01 13:10] VITALS: BP 122/62
[2018-09-01] MEDS: DIAZEPAM 10 MG TAB PO PRN (20:28)
[2018-09-01] MEDS ORDERED: traZODone HCL 50 MG TAB PO SCH (21:00)
[2018-09-02 03:31] VITALS: BP 119/68
[2018-09-02 07:35] VITALS: BP 94/72
[2018-09-02] MEDS: MULTIVITAMINS PO SCH (08:41)
[2018-09-02] MEDS: FOLIC ACID 1 MG TAB PO SCH (08:41)
[2018-09-02] MEDS: THIAMINE HCL 100 MG TAB PO SCH (08:41)
[2018-09-02] MEDS ORDERED: TRAZ150T8 PO (08:44)
[2018-09-02] MEDS ORDERED: MULT-1379 PO (08:45)
[2018-09-02] MEDS ORDERED: FOLI-68 PO (08:45)
[2018-09-02] MEDS ORDERED: THIA100T2 PO (08:46)
[2018-09-02] MEDS ORDERED: BUPR-126 PO (08:46)
--- NOTE | 2018-09-07 06:02 | SCHAAF DISCHARGE ---
DATE OF ADMISSION: August 30, 2018 DATE OF DISCHARGE: September 02, 2018 ATTENDING PHYSICIAN Devaughn West MD Patient was seen at approximately 0830 hours on 02 September 2018 for note concerning this dictation. FINAL DIAGNOSES 1. Alcohol use disorder, severe. 2. Alcohol withdrawal, considered complete. 3. History of post-traumatic stress disorder with symptoms largely in remission and some social isolation. REASON FOR ADMISSION This is a 63-year-old male admitted voluntarily for help with alcohol withdrawal. Patient was calm, pleasant, and polite throughout his stay, interacting well. Note symptoms of underlying PTSD, which patient has struggled with in the past, were minimal in nature. Alcohol withdrawal was considered minimal to moderate in nature and treated to completion. Patient demonstrating no aggression toward others, no parasuicidal behaviors, and in good spirits. Alcohol withdrawal treated to completion. Patient discharged to home. PHYSICAL EXAMINATION Please see emergency room note. Notable for 63-year-old male in no acute medical distress. Vital signs at the time of admission: Temperature 98.3, pulse 82, respiratory rate 16, blood pressure 138/84 and pulse oximetry 86% on room air. Vital signs at the time of discharge from [facility]: Temperature 98.2, pulse 92, respiratory rate 18, blood pressure low at 94/72. Patient asymptomatic for hypotension. Pulse oximetry 94% on room air. LABORATORY DATA Toxicology screen positive for cannabis at time of admission. Negative for other substances of abuse, with a serum alcohol level of 36. CBC notable for white blood cells low at 4.2, MCV elevated at 105.9, MCH elevated at 36.1, platelet count low-normal range at 165. Chemistry panel notable for AST and ALT elevated at 101 and 57 respectively. TSH 1.01. MENTAL STATUS EXAMINATION GENERAL APPEARANCE, BEHAVIOR AND ATTITUDE: At time of discharge, this is a pleasant, cooperative 63-year-old male Appears stated age. Well groomed, making good eye contact. No psychomotor agitation or retardation. No bizarre mannerisms or tics and no periods of tearfulness. SPEECH: Within normal limits. Regular rate, rhythm, volume and tone. MOOD: Described as okay. . AFFECT: Full and mood-congruent. THOUGHT PROCESSES: Logical and goal-directed, no loose associations or flight of ideas. THOUGHT CONTENT: Free of auditory or visual hallucinations, ideas of reference, thought broadcastings, delusions, obsessions or compulsions, and patient adamantly denying any suicidal or homicidal ideation. SENSORIUM: Clear. COGNITION: Alert and oriented to person, place, time and situation. MEMORY: Immediate, recent and remote was estimated intact. INTELLIGENCE: Average, based on interview. INSIGHT AND JUDGMENT: Considered grossly intact and appropriate for outpatient care in the absence of alcohol use or illicit substance use. RESULTS OF TESTING Imaging: None. Laboratory data: See above. CONSULTATIONS None. TREATMENT Patient received medications, participated in individual and group therapy. HOSPITAL COURSE Patient's alcohol withdrawal considered mild to moderate in nature, treated to completion with diazepam. Patient quickly improved. Patient exhibiting no other gross psychiatric symptoms of concern throughout his stay. CONDITION OF PATIENT ON DISCHARGE Stable. Considered a minimal risk to himself or others and appropriate for ongoing outpatient care. DISPOSITION Patient would follow up with AA and obtain a sponsor. Encouraged to follow up with [facility] as well. Given the crisis line should symptoms return. Abstain from alcohol and illicit substances. Patient was given trazodone 50 to 150 mg p.o. at bedtime; folic acid 1 mg over the counter; thiamine 100 mg over the counter daily; multivitamin with minerals daily. Patient was given a scrip for Wellbutrin as well, which he would start on 09/06/2018 by taking 150 mg of Wellbutrin SR in the a.m. After two weeks, he could increase to 150 mg in the a.m. and 150 mg at noon. Patient was to not take this medication if he was using alcohol. Patient was given the crisis line should symptoms return. Risks, benefits, and alternatives of above discharge plan were discussed. Informed consent was given to proceed with above discharge plan by this competent patient. YULI
== END 2018-09-02 09:45 | disposition home or self-care (01) | DRG 897 ==
LOC: BHS 17:52
PROVIDERS: ADMIT Psychiatry & Neurology Psychiatry; ATTEND Psychiatry & Neurology Psychiatry
DX: F10.230 Alcohol dependence with withdrawal, uncomplicated (principal); F43.12 Post-traumatic stress disorder, chronic; Y90.1 Blood alcohol level of 20-39 mg/100 ml; Z81.1 Family history of alcohol abuse and dependence; Z81.8 Family history of other mental and behavioral disorders; Z60.4 Social exclusion and rejection
CPT/HCPCS: 96365; 96366; 96375; 99284

== ENCOUNTER 2018-09-15 04:01 | Emergency (ER) | payer OTHER ==
[2015-02-02 09:41] VITALS: Wt 83.9 kg
[~2018-09-15 04:01] MED LIST changes: +BUPR-126 PO; +THIA100T2 PO; +TRAZ150T8 PO
--- NOTE | 2018-09-15 04:14 | ER Report ---
History and Physical Time Seen By MD: 04:11 Hx. of Stated Complaint: PT WANTS TO DETOX [facility]. LAST DRINK 8PM. (MAURIZIO WILLSON MD) HPI/ROS CHIEF COMPLAINT: Alcohol withdrawal HISTORY OF PRESENT ILLNESS: C3-year-old male. He was recently admitted [facility] and discharged a little over a week ago. He detox from alcohol at that time. He was sober for a few days and then began drinking again. Last drink was beer at about 8 PM last night. He is feeling very shaky. He is again requesting to be admitted to [facility] for alcohol detox. Denies any other problems other than some nausea but no vomiting. He does not smoke. He occasionally uses marijuana. No other drugs. REVIEW OF SYSTEMS: Respiratory: No cough, no dyspnea. Cardiovascular: No chest pain, no palpitations. Gastrointestinal: No vomiting, no abdominal pain. Genitourinary: No dysuria or frequency. Musculoskeletal: No back pain. (MAURIZIO WILLSON MD) Allergies: Coded Allergies: codeine (Verified Allergy, Mild, RASH, 10/23/17) ITCHING AND RASH REACTION oxycodone (Verified Allergy, Unknown, 10/23/17) itching rash Home Meds Reported Medications Thiamine Mononitrate (VITAMIN B-1) 100 Mg Tablet, 100 MG PO QDAY 09/02/18 Multivits,Th W-Fe,Other Min (THERA-M) 1 Each Tablet, 1 EACH PO QDAY 09/02/18 Folic Acid (FOLIC ACID) 1 Mg Tablet, 1 MG PO QDAY, TAB 09/02/18 Discontinued Reported Medications Bupropion Hcl (WELLBUTRIN SR) 150 Mg Tablet.er, 150 MG PO QDAY, TAB STARTING ON 09/06/18 TAKE 150 MG EACH MORNING FOR TWO WEEKS. AFTER TWO WEEKS TAKE 150 MG EACH MORNING AND 150 AT NOON. DO NOT USE ALCOHOL IF YOU ARE TAKING THIS MEDICATION. 09/02/18 Trazodone Hcl (TRAZODONE HCL) 150 Mg Tablet, 50-150 MG PO QHS TAKE 1/3 TO ONE TABLET ABOUT AN HOUR BEFORE YOU PLAN TO GO TO SLEEP. 09/02/18 Reviewed Nurses Notes: Yes (MAURIZIO WILLSON MD) Hx Smoking: No Smoking Status: Never Smoker Exposure to Second Hand Smoke?: No Hx Substance Use Disorder: Yes (marijuana) Hx Alcohol Use: Yes (MAURIZIO WILLSON MD) Constitutional Vital Sign - Last 24 Hours 09/15/18 09/15/18 09/15/18 09/15/18 04:05 04:06 04:30 04:31 Temp 98.3 Pulse 103 ??? Resp 20 28 B/P (MAP) 152/98 152/98 (116) 139/91 (107) Pulse Ox 92 91 O2 Delivery Room Air 09/15/18 09/15/18 09/15/18 09/15/18 04:46 05:01 05:16 05:30 Pulse 79 ??? 90 Resp 14 27 B/P (MAP) 123/79 (94) Pulse Ox 91 90 09/15/18 09/15/18 09/15/18 09/15/18 05:31 05:36 05:40 06:00 Pulse 89 88 Resp 15 17 B/P (MAP) 125/84 (98) Pulse Ox 93 93 O2 Flow Rate 2.0 09/15/18 09/15/18 09/15/18 09/15/18 06:06 06:36 07:00 07:06 Pulse ??? 85 84 Resp 16 16 14 B/P (MAP) 141/80 (100) Pulse Ox 87 91 93 09/15/18 07:30 B/P (MAP) 137/87 (104) Intake and Output 09/14/18 09/14/18 09/15/18 15:00 23:00 07:00 Intake Total 1000 ml Balance 1000 ml (JOSELIN GERBER MD) Physical Exam General Appearance: The patient is alert, has no immediate need for airway protection and he is very shaky from the alcohol withdrawal Eyes: Pupils equal and round no injection. Reactive to light. Extraocular movements intact. ENT: Normal oral mucosa. Moist mucous membranes. Neck: Neck is supple and non tender. Respiratory: Chest is non tender, lungs are clear to auscultation. Cardiac: regular rate and rhythm Gastrointestinal: Abdomen is soft and non tender, no masses, bowel sounds no rmal. Musculoskeletal: Extremities have full range of motion. Skin: No rashes or lesions. CIWA scale 12 DIFFERENTIAL DIAGNOSIS: After history and physical exam differential diagnosis was considered for alcohol withdrawal. (MAURIZIO WILLSON MD) Medical Decision Making Data Points Result Diagram: 09/15/1843809/15/18438 Laboratory Hematology Test 09/15/18 04:39 09/15/18 06:30 Red Blood Count 4.54 M/uL (4.00-5.60) Mean Corpuscular Volume 106.6 fL (80.0-96.0) Mean Corpuscular Hemoglobin 35.8 pg (26.0-33.0) Mean Corpuscular Hemoglobin Concent 33.6 g/dL (32.0-36.0) Red Cell Distribution Width 14.6 % (11.5-14.5) Mean Platelet Volume 7.9 fL (7.2-11.1) Neutrophils (%) (Auto) 72.8 % (39.4-72.5) Lymphocytes (%) (Auto) 18.6 % (17.6-49.6) Monocytes (%) (Auto) 7.5 % (4.1-12.4) Eosinophils (%) (Auto) 0.9 % (0.4-6.7) Basophils (%) (Auto) 0.2 % (0.3-1.4) Nucleated RBC Relative Count (auto) 0.0 /100WBC Neutrophils # (Auto) 3.7 K/uL (2.0-7.4) Lymphocytes # (Auto) 0.9 K/uL (1.3-3.6) Monocytes # (Auto) 0.4 K/uL (0.3-1.0) Eosinophils # (Auto) 0.0 K/uL (0.0-0.5) Basophils # (Auto) 0.0 K/uL (0.0-0.1) Nucleated RBC Absolute Count (auto) 0.00 K/uL Peripheral Blood Smear Yes Y/N Sodium Level 136 mmol/L (137-145) Potassium Level 3.9 mmol/L (3.5-5.0) Chloride Level 103 mmol/L (98-107) Carbon Dioxide Level 18 mmol/L (22-30) Blood Urea Nitrogen 7 mg/dl (9-21) Creatinine 0.80 mg/dl (0.66-1.25) Glomerular Filtration Rate Calc > 60.0 Random Glucose 91 mg/dl (75-110) Calcium Level 8.8 mg/dl (8.4-10.2) Magnesium Level 2.1 mg/dl (1.7-2.2) Total Bilirubin 0.8 mg/dl (0.2-1.3) Aspartate Amino Transf (AST/SGOT) 146 U/L (0-35) Alanine Aminotransferase (ALT/SGPT) 65 U/L (0-56) Alkaline Phosphatase 83 U/L (0-126) Total Protein 7.3 g/dl (6.3-8.2) Albumin 4.1 g/dl (3.5-5.0) Thyroid Stimulating Hormone (TSH) 1.47 uIU/ml (0.46-4.68) Salicylates Level < 10 mg/L Salicylate Last Dose Date unk Acetaminophen Level < 10 ug/ml Serum Alcohol 35 mg/dl Urine Color Yellow Urine Clarity Clear Urine pH 6.0 pH (4.8-9.5) Urine Specific Bryan 1.017 Urine Protein Negative mg/dL (NEGATIVE) Urine Glucose (UA) Negative mg/dL (NEGATIVE) Urine Ketones 20 mg/dL (NEGATIVE) Urine Blood Negative (NEGATIVE) Urine Nitrite Negative (NEGATIVE) Urine Bilirubin Negative (NEGATIVE) Urine Urobilinogen 4.0 mg/dL (0.2-1.9) Urine Leukocyte Esterase Negative (NEGATIVE) Urine RBC 1 /HPF (0-2/HPF) Urine WBC 8 /HPF (0-5/HPF) Urine Squamous Epithelial Cells Moderate /LPF (</=FEW) Urine Bacteria Negative /HPF (NONE-FEW) Urine Mucus None /HPF (NONE-FEW) Urine Opiates Screen Negative Urine Barbiturates Screen Negative Ur Tricyclic Antidepressants Screen Negative Urine Phencyclidine Screen Negative Urine Amphetamines Screen Negative Urine Benzodiazepines Screen Positive Urine Cocaine Screen Negative Urine Cannabinoids Screen Positive Chemistry Test 09/15/18 04:39 09/15/18 06:30 White Blood Count 5.1 k/uL (4.5-11.0) Red Blood Count 4.54 M/uL (4.00-5.60) Hemoglobin 16.2 g/dL (14.0-18.0) Hematocrit 48.4 % (42.0-52.0) Mean Corpuscular Volume 106.6 fL (80.0-96.0) Mean Corpuscular Hemoglobin 35.8 pg (26.0-33.0) Mean Corpuscular Hemoglobin Concent 33.6 g/dL (32.0-36.0) Red Cell Distribution Width 14.6 % (11.5-14.5) Platelet Count 126 K/uL (150-450) Mean Platelet Volume 7.9 fL (7.2-11.1) Neutrophils (%) (Auto) 72.8 % (39.4-72.5) Lymphocytes (%) (Auto) 18.6 % (17.6-49.6) Monocytes (%) (Auto) 7.5 % (4.1-12.4) Eosinophils (%) (Auto) 0.9 % (0.4-6.7) Basophils (%) (Auto) 0.2 % (0.3-1.4) Nucleated RBC Relative Count (auto) 0.0 /100WBC Neutrophils # (Auto) 3.7 K/uL (2.0-7.4) Lymphocytes # (Auto) 0.9 K/uL (1.3-3.6) Monocytes # (Auto) 0.4 K/uL (0.3-1.0) Eosinophils # (Auto) 0.0 K/uL (0.0-0.5) Basophils # (Auto) 0.0 K/uL (0.0-0.1) Nucleated RBC Absolute Count (auto) 0.00 K/uL Peripheral Blood Smear Yes Y/N Glomerular Filtration Rate Calc > 60.0 Calcium Level 8.8 mg/dl (8.4-10.2) Magnesium Level 2.1 mg/dl (1.7-2.2) Total Bilirubin 0.8 mg/dl (0.2-1.3) Aspartate Amino Transf (AST/SGOT) 146 U/L (0-35) Alanine Aminotransferase (ALT/SGPT) 65 U/L (0-56) Alkaline Phosphatase 83 U/L (0-126) Total Protein 7.3 g/dl (6.3-8.2) Albumin 4.1 g/dl (3.5-5.0) Thyroid Stimulating Hormone (TSH) 1.47 uIU/ml (0.46-4.68) Salicylates Level < 10 mg/L Salicylate Last Dose Date unk Acetaminophen Level < 10 ug/ml Serum Alcohol 35 mg/dl Urine Color Yellow Urine Clarity Clear Urine pH 6.0 pH (4.8-9.5) Urine Specific Bryan 1.017 Urine Protein Negative mg/dL (NEGATIVE) Urine Glucose (UA) Negative mg/dL (NEGATIVE) Urine Ketones 20 mg/dL (NEGATIVE) Urine Blood Negative (NEGATIVE) Urine Nitrite Negative (NEGATIVE) Urine Bilirubin Negative (NEGATIVE) Urine Urobilinogen 4.0 mg/dL (0.2-1.9) Urine Leukocyte Esterase Negative (NEGATIVE) Urine RBC 1 /HPF (0-2/HPF) Urine WBC 8 /HPF (0-5/HPF) Urine Squamous Epithelial Cells Moderate /LPF (</=FEW) Urine Bacteria Negative /HPF (NONE-FEW) Urine Mucus None /HPF (NONE-FEW) Urine Opiates Screen Negative Urine Barbiturates Screen Negative Ur Tricyclic Antidepressants Screen Negative Urine Phencyclidine Screen Negative Urine Amphetamines Screen Negative Urine Benzodiazepines Screen Positive Urine Cocaine Screen Negative Urine Cannabinoids Screen Positive Toxicology Test 09/15/18 04:39 09/15/18 06:30 Salicylates Level < 10 mg/L Salicylate Last Dose Date unk Acetaminophen Level < 10 ug/ml Serum Alcohol 35 mg/dl Urine Opiates Screen Negative Urine Barbiturates Screen Negative Ur Tricyclic Antidepressants Screen Negative Urine Phencyclidine Screen Negative Urine Amphetamines Screen Negative Urine Benzodiazepines Screen Positive Urine Cocaine Screen Negative Urine Cannabinoids Screen Positive Urinalysis Test 09/15/18 06:30 Urine Color Yellow Urine Clarity Clear Urine pH 6.0 pH (4.8-9.5) Urine Specific Bryan 1.017 Urine Protein Negative mg/dL (NEGATIVE) Urine Glucose (UA) Negative mg/dL (NEGATIVE) Urine Ketones 20 mg/dL (NEGATIVE) Urine Blood Negative (NEGATIVE) Urine Nitrite Negative (NEGATIVE) Urine Bilirubin Negative (NEGATIVE) Urine Urobilinogen 4.0 mg/dL (0.2-1.9) Urine Leukocyte Esterase Negative (NEGATIVE) Urine RBC 1 /HPF (0-2/HPF) Urine WBC 8 /HPF (0-5/HPF) Urine Squamous Epithelial Cells Moderate /LPF (</=FEW) Urine Bacteria Negative /HPF (NONE-FEW) Urine Mucus None /HPF (NONE-FEW) (JOSELIN GERBER MD) ED Course/Re-evaluation ED Course Pt was admitted at time of t/o to ks. I placed admission dx as pt was en route to floor, hd stable. Decision to Disposition Date: Sep 15, 2018 Decision to Disposition Time: 07:45 (JOSELIN GERBER MD) Depart Departure Latest Vital Signs Vital Signs Date Time Temp Pulse Resp B/P (MAP) Pulse Ox O2 Delivery O2 Flow Rate FiO2 09/15/18 07:30 137/87 (104) 09/15/18 07:06 84 14 93 09/15/18 05:40 2.0 09/15/18 04:05 98.3 Room Air (JOSELIN GERBER MD) Impression: Primary Impression: Alcohol intoxication Condition: Stable Disposition: Admitted from ER Referrals: MARCELINO BATRES DO (PCP) Problem Qualifiers Primary Impression: Alcohol intoxication Complication of substance-induced condition: uncomplicated Qualified Codes: F10.920 - Alcohol use, unspecified with intoxication, uncomplicated MAURIZIO WILLSON MD Sep 15, 2018 04:14 JOSELIN GERBER MD Sep 15, 2018 07:45
[2018-09-15] MEDS ORDERED: DIAZEPAM 10 MG TAB PO ONE (04:25)
[2018-09-15] MEDS ORDERED: ONDANSETRON 4 MG ODT TABDP SL ONE (04:25)
[2018-09-15 04:59] LABS: PLATELET COUNT, AUTOMATED 126 K/uL (150-450)
[2018-09-15] MEDS ORDERED: NS(*) 0.9% 1000 ML BAG 1,000 ML IV ONE (05:50)
[2018-09-15 07:30] VITALS: BP 137/87
== END 2018-09-15 07:38 ==
LOC: ER 05:25
DX: F10.229 Alcohol dependence with intoxication, unspecified (principal)
CPT/HCPCS: 80305; 80320; 80329; 81001; 82040; 82247; 82310; 82374; 82435; 82565; 82947; 83735; 84075; 84132; 84155; 84295; 84443; 84450; 84460; 84520; 85025; 96360; 99284; J7030; S0119

== ENCOUNTER 2018-09-15 07:00 | Inpatient (IN) | payer OTHER ==
[2015-02-02 09:41] VITALS: Ht 172.7 cm; Wt 83.9 kg
[~2018-09-15] VITALS: Ht 172.7 cm; Wt 83.9 kg
[2018-09-15] MEDS ORDERED: MAG HYD/AL HYD/SIMETH 30ML UDC PO PRN (07:25)
[2018-09-15 07:45] VITALS: BP 130/70
[2018-09-15] MEDS: THIAMINE HCL 100 MG TAB PO SCH (08:14)
[2018-09-15] MEDS: MULTIVITAMINS TAB PO SCH (08:14)
[2018-09-15] MEDS: DIAZEPAM 10 MG TAB PO PRN ×3 (08:14→21:00)
[2018-09-15] MEDS: FOLIC ACID 1 MG TAB PO SCH (08:14)
[2018-09-15 10:25] VITALS: BP 122/78
[2018-09-15 12:35] VITALS: BP 114/68
[2018-09-15 16:49] VITALS: BP 115/78
[2018-09-15 20:51] VITALS: BP 122/72
[2018-09-16 00:30] VITALS: BP 133/80
[2018-09-16] MEDS: DIAZEPAM 10 MG TAB PO PRN (00:34)
[2018-09-16 07:35] VITALS: BP 104/62
[2018-09-16] MEDS: THIAMINE HCL 100 MG TAB PO SCH (08:14)
[2018-09-16] MEDS: FOLIC ACID 1 MG TAB PO SCH (08:14)
[2018-09-16] MEDS: MULTIVITAMINS TAB PO SCH (08:15)
[2018-09-16 11:30] VITALS: BP 108/62
--- NOTE | 2018-09-16 13:04 | BHS Progress Note ---
[facility] - Subjective Progress Notes Subjective Patient tearful today when reflecting on not talking to his children as often as he would like, and reflecting on his relapse. Will continue treatment of alcohol withdrawal, and continue to evaluate any underlying psychiatric symptoms. Appetite good. Suicidal Ideation: None Homicidal Ideation: None [facility] - Objective Physical Exam Vital Signs Vital Signs Date Time Temp Pulse Resp B/P (MAP) Pulse Ox O2 Delivery O2 Flow Rate FiO2 09/16/18 11:30 98.4 78 16 108/62 (77) 92 Room Air 09/16/18 00:30 2.0 Muscle Strength and Tone: WNL Gait and Station: Steady [facility] Medications Reviewed: Side Effects, Benefits of Medication, Risks Allergies Reviewed: Yes Mental Status Exam General Appearance: Casual, Well Groomed, Good Eye Contact, Cooperative, Polite, Good Interaction, Tearful; No Psychomotor Agitation, No Psychomotor Retardation, No Bizarre Mannerisms, No Tics Speech: Clear, Spontaneous, Normal Rate, Normal Rhythm, Normal Volume (quiet), Normal Tone Mood: Dysthmic/Depressed Affect: Calm, Neutral, Tearful; No Anxious, No Agitated Thought Process: Organized, Logical, Goal Directed; No Loose Associations, No Flight of Ideas Thought Content: No Suicidal Ideation, No Homicidal Ideation, No Delusions, No Auditory Halllucinations, No Visual Hallucinations, No Thought Broadcasting, No Ideas of Reference, No Obsessions, No Compulsions Sensorium: Clear Cognition: Alert & Oriented-Person, Alert & Oriented-Place, Alert & Oriented- Time, Bbgrb-Allehxqk-Axjsiubkg Memory: Immediate, Recent, Remote Intelligence: Average Insight Judgment: Fair (in absence of alcohol use) [facility] Assessment and Plan Xmnq-[id number] Encounter Date: Sep 16, 2018 Mdgo-ft-Snuz Encounter Time: 12:00 [facility] Plan: Necessary Precautions, Individual/Group Therapy, Admin/Titrate Meds, Educate Patient Tobacco Medications: Not Appropriate Condition Multpiple Antipsychotics Used: No Problems: (1) Alcohol withdrawal Status: Acute (2) Alcohol use disorder, severe, dependence Status: Chronic Condition 1. continue treatment. 2. explore options at discharge to promote abstinence. Problem Qualifiers (1) Alcohol withdrawal: Complication of substance-induced condition: uncomplicated Qualified Codes: F10.230 - Alcohol dependence with withdrawal, uncomplicated AYESHA FULLER MD Sep 16, 2018 13:04
[2018-09-16] MEDS ORDERED: LOPERAMIDE HCL 2 MG CAP PO PRN (13:50)
[2018-09-16] MEDS ORDERED: LOPERAMIDE HCL 2 MG CAP PO ONE (13:50)
[2018-09-16 17:09] VITALS: BP 118/72
[2018-09-16 20:28] VITALS: BP 118/60
[2018-09-16] MEDS ORDERED: traZODone HCL 50 MG TAB PO SCH (21:00)
--- NOTE | 2018-09-16 23:05 | SCHAAF H&P ---
DATE OF ADMISSION: September 15, 2018 ATTENDING PHYSICIAN Devaughn West MD Patient was seen at approximately 1000 hours on 15 September 2018 for note concerning this dictation. PRESENTING PROBLEM, CHIEF COMPLAINT Patient returning for help with alcohol withdrawal. HISTORY OF PRESENT ILLNESS This is well-known 63-year-old male who was notably just discharged on September 02, 2018, after a three-day stay for alcohol detoxification. Patient returned in the hand cementer hours of September 15, 2018, to the emergency room in active alcohol withdrawal. Patient was admitted on a voluntary basis. Patient has a long history of mancini with alcoholism. Patient has been previously encouraged to enter rehab program. At this time, will continue to treat alcohol withdrawal completion and continue to monitor any other symptoms of psychiatric concern. Patient unable to be effectively interviewed at time of admission due to active treatment for alcohol withdrawal. MENTAL HEALTH HISTORY The patient has had multiple admissions here to [facility] for detox from alcohol. He has had two prior rehab admissions, one at [facility] in [place] and one in [place]. He has attended AA over the years. He is not currently engaged with them. He had brief outpatient treatment after divorce in 2010. Patient reports Wellbutrin made him wired and he stopped that shortly after previous admission but now is thinking about restarting it. He took Effexor briefly for knee pain five to six years ago but stopped due to sexual side effects. Patient is not believed to have a history of suicide attempt and not currently following up with outpatient provider. FAMILY PSYCHIATRIC HISTORY Father suffered from alcohol use disorder. Mother suffered from depression. No suicides in the family history. PAST MEDICAL HISTORY 1. Knee surgery. 2. Rotator cuff surgery. 3. Partial colon resection two yeas ago secondary to significant diverticulitis. SOCIAL HISTORY The patient was born in [place] to parents. His father was a physician. One brother and later a half brother. He graduated high school, did about two years of college. Parents when he was 20. Patient was never engaged in the . 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 Patient was for 20 years, in 2010. Patient has two adult children with whom he has good relationships at times. He lives alone here in [place]. 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 LEGAL HISTORY Two DUIs in the remote past. SUBSTANCE ABUSE HISTORY Alcohol remains drug of choice, with marijuana as well. In the patient, patient has experimented with other drugs. PHYSICAL EXAMINATION Please see emergency room note. Notable for 63-year-old male in active alcohol withdrawal at time of admission. Temperature 98.3, pulse 103, respiratory rate 20, blood pressure 152/98, and pulse oximetry 92% on room air. LABORATORY DATA CBC notable for MCV elevated to 106.6, MCH 35.8 and elevated, platelet count low at 126. Chemistry panel notable for AST elevated at 146, ALT elevated at 65, total bilirubin 0.8. TSH 1.47, in normal range. Urinalysis notable for urine ketones and urobilinogen present. Toxicology screen positive for benzodiazepines, positive for cannabis. Patient noted to be prescribed benzodiazepines in the ER, and a serum alcohol level at 35 upon admission. MENTAL STATUS EXAMINATION GENERAL APPEARANCE, BEHAVIOR AND ATTITUDE: During initial interview, this is a lethargic 63-year-old male currently being actively treated with diazepam per [facility] protocol. Patient making good eye contact. No bizarre mannerisms or tics. SPEECH: Soft and slowed. MOOD: Frustrated over relapse into alcohol. AFFECT: Constricted and mood-congruent. THOUGHT PROCESSES: Difficult to fully assess during the initial interview. No loose associations or flight of ideas. THOUGHT CONTENT: Patient free of auditory or visual hallucinations, ideas of reference, thought broadcastings, delusions, obsessions or compulsions. Adamantly denying suicidal or homicidal ideations. SENSORIUM: Clear. COGNITION: Was alert and oriented to person, place, time, and situation. MEMORY: Immediate, recent and remote estimated intact. INTELLIGENCE: Average, based on previous knowledge of this patient. INSIGHT AND JUDGMENT: Considered grossly intact in the absence of alcohol use. Patient did present voluntarily for help with alcohol withdrawal. ASSESSMENT This is a 63-year-old male who has ongoing battles with relapses into alcohol use and return visits to the emergency room for help with detox. 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 Will continue to treat alcohol withdrawal to completion and evaluate any other symptoms of psychiatric concern. DIAGNOSES 1. Alcohol intoxication. 2. Alcohol withdrawal. 3. Alcohol use disorder, severe. 4. History of post-traumatic stress disorder, most recently largely in remission. 5. Some social isolation. PLAN 1. Admit to the unit. 2. Necessary precautions will be implemented. 3. The patient will participate in individual and group therapy. 4. Medications will be administered and titrated accordingly. 5. Collateral information to be obtained as necessary. 6. Estimated length of stay three to five days. MTDD
[2018-09-17 06:20] VITALS: BP 114/70
[2018-09-17] MEDS: THIAMINE HCL 100 MG TAB PO SCH (08:04)
[2018-09-17] MEDS: FOLIC ACID 1 MG TAB PO SCH (08:04)
[2018-09-17] MEDS: MULTIVITAMINS TAB PO SCH (08:04)
[2018-09-17] MEDS ORDERED: TRAZ150T8 PO (09:52)
--- NOTE | 2018-09-17 14:42 | SCHAAF DISCHARGE ---
DATE OF ADMISSION: September 15, 2018 DATE OF DISCHARGE: September 17, 2018 ATTENDING PHYSICIAN Devaughn West MD The patient was seen at approximately 09:00 hours on September 17, 2018 for note concerning this dictation. FINAL DIAGNOSES PER DSM-V 1. Alcohol use disorder, severe. 2. Alcohol withdrawal considered complete. 3. History of PTSD currently symptoms in remission. 4. Ongoing social stressors related to substance use, alcohol. REASON FOR ADMISSION This is a pleasant 63-year-old male who was admitted on September 15, 2018. This notably following a discharge from the Behavioral Health Unit under similar circumstances on September 02, 2018. The patient admitted for treatment with alcohol withdrawal. The patient admitted quickly relapsing upon discharge. Alcohol withdrawal was once again treated to completion, considered moderate in nature and patient overall took an active role in his treatment. The patient again refusing to go to residential rehab for treatment of ongoing alcoholism but agreed to follow up with AA, obtain a sponsor and abstain from alcohol. The patient exhibiting no other psychiatric symptoms of concern on the unit. The patient indicating some mild degree of concern over not being able to contact his grown children and the hazards alcohol has caused. However, the patient stated he would continue to try to contact them at home. The patient denying adamantly any suicidal ideation or significant depressive concerns. The patient discharged to home. PHYSICAL EXAMINATION For physical exam please see emergency room note. Notable for a 63-year-old male in active alcohol withdrawal at the time of admission. Vital signs at the time of admission: Temperature 98.3, pulse 103, respiratory rate 20, blood pressure 152/98 and pulse oximetry 92% on room air. Vital signs at the time of discharge: Temperature 98.1, pulse 97, respiratory rate 20, blood pressure 114/70, and pulse oximetry 90 % on room air. LABORATORY DATA CBC notable for MCV elevated at 106.6, with an MCH elevated at 35.8, platelet count low at 126, 000 upon admission. Chemistry panel notable for AST elevated at 146 with an ALT 65. TSH 1.47. Urinalysis did show urine ketones present and urobilinogen present, otherwise unremarkable. Toxicology screen positive for Benzodiazepines which the patient was given. Positive for cannabinoids and a serum alcohol level of 35 upon admission. MENTAL STATUS EXAMINATION GENERAL APPEARANCE, BEHAVIOR AND ATTITUDE: This is polite, cooperative 63-year-old male making good eye contact. No bizarre mannerisms or tics. No psychomotor agitation or retardation. SPEECH: Within normal limits. Regular rate, rhythm, volume and tone. MOOD: Described as good. AFFECT: Full at times and mood-congruent. THOUGHT PROCESSES: Goal-directed the patient stating he felt ready to go home and resume his work and take care of getting treatment regimen in place to abstain from alcohol. The patient logical. No loose associations or flight of ideas. THOUGHT CONTENT: Free of auditory or visual hallucinations, ideas of reference, thought broadcastings, delusions, obsessions or compulsions. The patient is adamantly denying suicidal or homicidal ideation. SENSORIUM: Clear. COGNITION: Alert and oriented to person, place, time and situation. MEMORY: Immediate, recent and remote was estimated intact. INTELLIGENCE: Average, based on interview. INSIGHT AND JUDGMENT: Considered grossly intact in the absence of alcohol and substance use and appropriate for outpatient care. RESULTS OF TESTING Imaging: None. Laboratory data: See above. Psychological testing: Not done. CONSULTATIONS None. TREATMENT Patient received medications, participated in individual and group therapy. HOSPITAL COURSE The patient's alcohol withdrawal was treated to completion with Diazepam per [facility] protocol. The patient continued to improve. The patient was started on Trazodone at 100 mg p.o. q nightly with good results. The patient took an active role in his care. CONDITION OF PATIENT ON DISCHARGE Stable. Considered a minimal risk to himself or others, appropriate for ongoing outpatient management. DISPOSITION The patient was discharged to home. He would follow up with outpatient medications and therapy management. The patient was encouraged to enter into residential rehab. He would follow up with AA and obtain a sponsor, avoid alcohol and illicit substances and would follow up with [facility]. He was given the Crisis line should symptoms return. DISCHARGE MEDICATIONS: 1. Trazodone 50-150 mg p.o. q nightly which the patient had at home. 2. Patient would also take Folic acid 1 mg daily. 3. Multivitamin with minerals daily. 4. Thiamin 100 mg daily. The patient would abstain from illicit substances as well and would not resume treatment with Wellbutrin. The risks, benefits and alternatives of the above discharge plan were discussed. Informed consent was given to proceed with the above discharge plan by this competent patient. YULI
== END 2018-09-17 10:15 | disposition home or self-care (01) | DRG 897 ==
LOC: BHS 07:00
PROVIDERS: ADMIT Psychiatry & Neurology Psychiatry; ATTEND Psychiatry & Neurology Psychiatry
DX: F10.230 Alcohol dependence with withdrawal, uncomplicated (principal); Y90.1 Blood alcohol level of 20-39 mg/100 ml; Z81.1 Family history of alcohol abuse and dependence; Z81.8 Family history of other mental and behavioral disorders

== ENCOUNTER 2018-11-17 19:18 | Inpatient (IN) | payer OTHER ==
[2015-02-02 09:41] VITALS: Ht 172.7 cm; Wt 81.6 kg
[~2018-11-17] VITALS: Ht 172.7 cm; Wt 81.6 kg
[2018-11-17] MEDS ORDERED: ACETAMINOPHEN 325 MG TAB PO PRN (19:50)
[2018-11-17] MEDS ORDERED: NICOTINE CARTRIDGE 1 EA PO PRN (19:50)
[2018-11-17] MEDS ORDERED: NICOTINE INH SYSTEM 10 MG/INH INH PRN (19:50)
[2018-11-17] MEDS ORDERED: MAG HYD/AL HYD/SIMETH 30ML UDC PO PRN (19:50)
[2018-11-17 21:22] VITALS: BP 158/82
[2018-11-17] MEDS: DIAZEPAM 10 MG TAB PO PRN (21:35)
[2018-11-18 05:10] VITALS: BP 126/77
[2018-11-18] MEDS: MULTIVITAMINS TAB PO SCH (08:27)
[2018-11-18] MEDS: FOLIC ACID 1 MG TAB PO SCH (08:27)
[2018-11-18] MEDS: THIAMINE HCL 100 MG TAB PO SCH (08:27)
[2018-11-18 09:30] VITALS: BP 130/78
[2018-11-18] MEDS ORDERED: traZODone HCL 50 MG TAB PO PRN (09:30)
[2018-11-18] MEDS: SERTRALINE HCL 50 MG TAB PO SCH (12:35)
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
[2018-11-18 13:30] VITALS: BP 118/74
[2018-11-18 17:00] VITALS: BP 122/82
[2018-11-19 02:22] VITALS: BP 135/81
[2018-11-19 08:05] VITALS: BP 128/68
[2018-11-19] MEDS: FOLIC ACID 1 MG TAB PO SCH (08:28)
[2018-11-19] MEDS: THIAMINE HCL 100 MG TAB PO SCH (08:28)
[2018-11-19] MEDS: SERTRALINE HCL 50 MG TAB PO SCH (08:28)
[2018-11-19] MEDS: DIAZEPAM 10 MG TAB PO PRN (08:28)
[2018-11-19] MEDS: MULTIVITAMINS TAB PO SCH (08:29)
--- NOTE | 2018-11-19 09:06 | RADIOLOGY IMAGING REPORT ---
FACILITY: [facility] PATIENT NAME: Richy Metzger : 1955 MR: [id number] V: [id number] EXAM DATE: ORDERING PHYSICIAN: JÚNIOR KIM TECHNOLOGIST: Location: [facility] Patient: Richy Metzger : 1955 Visit/Account:[id number] Date of Sevice: 11/19/2018 EXAMINATION: CT head without IV contrast HISTORY: Seizure activity with no prior history. COMPARISON: CT head from 05/16/2007. TECHNIQUE: Contiguous axial images were obtained from the skull base to the vertex without intraven ous contrast. Sagittal and coronal reformatted images are also submitted. One of the following dose optimization techniques was utilized in the performance of this exam: Autom ated exposure control; adjustment of the mA and/or kV according to the patient's size; or use of an i terative reconstruction technique. Specific details can be referenced in the facility's radiology C T exam operational policy. FINDINGS: Brain volume: Normal. Ventricles: Normal. Acute ischemic changes: None. Hemorrhage: No acute intracranial hemorrhage. Masses/edema: None. Sandra-white: Negative. White matter: Normal. Vessels: Negative. Extra-axial: Negative. Calvarium/scalp: No acute fracture. Skull base/visualized face: Negative. Visualized sinuses/orbits: Small mucous retention cyst in the right maxillary sinus. IMPRESSION: No acute fracture, hemorrhage or intracranial mass lesion. No CT evidence of acute infarct. Report Dictated By: Edith Stinson MD at 11/19/2018 8:58 AM Report E-Signed By: Edith Stinson MD at 11/19/2018 9:01 AM [id number]
--- NOTE | 2018-11-19 10:44 | BHS Progress Note ---
[facility] - Subjective Progress Notes Subjective When I arrived on the unit the morning just after 8 am, Mr. Mccann had just suffered a seizure. He was being attended to by nursing staff. He had not been receiving any benzodiazepines since his CIWA scores have been low. He was up eating breakfast when he fell out of his chair. Staff responded immediately. I saw his a few minutes later. He was diaphoretic but able to tell me that he had fallen out of his chair and realized he had a seizure. Denied this ever happening before. States that he had some head trauma with loss of consciousness when he was a young man--he played lacross--but nothing recent. [facility] - Objective Physical Exam Vital Signs temp was 99.1, BP 128/68, pulse 72, respirations 20, pulse ox 95% Muscle Strength and Tone: Other (Shaky and post-ictal) Mental Status Exam General Appearance: Well Groomed Speech: Clear, Normal Rate, Normal Rhythm, Normal Volume, Normal Tone Thought Process: Organized, Logical, Goal Directed Sensorium: Clear Cognition: Alert & Oriented-Person, Alert & Oriented-Place, Gsmhe-[id number]-[id number] Result Diagram: 11/19/[address] of the brain showed no signs of mass effect, bleeding, or trauma [facility] Assessment and Plan Hcmu-ew-[id number] Encounter Date: Nov 19, 2018 Lvry-ft-Bdqe Encounter Time: 08:10 [facility] Plan: Necessary Precautions, Individual/Group Therapy, Admin/Titrate Meds, Educate Patient Tobacco Medications: Not Appropriate Condition Problems: (1) Alcohol withdrawal seizure Status: Acute (2) Alcohol abuse Status: Acute (3) Alcohol withdrawal Status: Acute (4) Alcohol use disorder, severe, dependence Status: Chronic (5) Hyponatremia Condition We had planned on releasing Mr. Lockhart today since he was not showing active signs of withdrawal, but given his seizure, I ordered 20 mgs of diazepam to be given and will give him another 10 mgs this evening. Will D/C the CIWA protocol. Stop trazodone. Repeat chem panel in the am. We will reassess in the morning. JÚNIOR KIM DO Nov 19, 2018 10:44
[2018-11-19] MEDS ORDERED: LOPERAMIDE HCL 2 MG CAP PO PRN (18:45)
[2018-11-19 19:56] VITALS: BP 107/77
[2018-11-19] MEDS ORDERED: DIAZEPAM 10 MG TAB PO SCH (21:00)
[2018-11-20 06:19] VITALS: BP 138/87
--- NOTE | 2018-11-20 06:20 | NUR ---
Am lab drawn and vitals obtained. Patient has been awake and reading a book in room without issues since approximately 0200. Denies any needs or concerns at this time. No s/s of distress or discomfort noted.
[2018-11-20] MEDS: MULTIVITAMINS TAB PO SCH (08:23)
[2018-11-20] MEDS: FOLIC ACID 1 MG TAB PO SCH (08:23)
[2018-11-20] MEDS: SERTRALINE HCL 50 MG TAB PO SCH (08:23)
[2018-11-20] MEDS: THIAMINE HCL 100 MG TAB PO SCH (08:23)
[2018-11-20] MEDS ORDERED: SERT-1 PO (09:00)
--- NOTE | 2018-11-22 03:25 | DISCHARGE SUMMARY ---
DATE OF ADMISSION: November 17, 2018 DATE OF DISCHARGE: November 20, 2018 ATTENDING PHYSICIAN Hannah Gandhi DO FINAL DIAGNOSES 1. Alcohol use disorder. 2. Alcohol withdrawal. 3. Alcohol withdrawal seizure. 4. Dysthymia. REASON FOR ADMISSION Mr. Mccann presented to the emergency room complaining that his drinking was out of control and that he was unable to stop drinking without medical help because of the withdrawal symptoms. This is the eighth admission to [facility] for alcohol detox for this patient. He was last here in late August 2018. After he left, he was sober for a while, then relapsed to drinking beer. He has also occasionally been using cannabis gummy bears. He has a long history of alcoholism, and in the past had about three years of sobriety and was maintained by attending AA meetings daily. He also complained on admission that he had had a negative experience in AA recently, and that was part of why he felt he had relapsed again. He also complained of some depressive symptoms including social isolation, not going out to activities that he formerly enjoyed, excessive feelings of guilt and shame, low self-esteem, feeling hopeless, and low mood. PHYSICAL EXAMINATION Upon examination, the patient had elevated blood pressure of 158/82. His urinalysis was positive for glucose at 150 and ketones at 20. Urobilinogen was high at 4.0. The remaining UA was within normal limits. On admission, his tox screen was positive for cannabinoids and for amphetamines. However, he denied using amphetamines, and a repeat tox screen was no longer positive for amphetamines. TSH was 1.74. WBCs low at 4.4. MCV high at 104.3. MCH high at 35.4. Platelets low at 143. Lymphocytes low at 0.9. Sodium low at 136. CO2 low at 18. BUN low at 7. A random glucose was 85. AST was high at 82. ALT normal at 55. Total bilirubin normal at 0.5. Serum alcohol was 65 on admission. On admission, the patient was well groomed, cooperative, and demonstrating coarse tremors in both hands. Speech was normal in rate, tone, and volume. Mood and affect were dysthymic. He was tearful a couple of times. Thought process was logical and goal oriented. Thought content negative for suicidal ideation, homicidal ideation, or psychotic symptoms. He was fully oriented to all spheres. Memory was also intact and intelligence at least average. Judgment and insight fair. RESULTS OF TESTING A repeat blood chemistry panel on 11/20/2018 found sodium still slightly low at 135 and AST also high at 68, but no other abnormalities. We did a magnesium level on 11/19/2018, since the patient had had a seizure. It was actually elevated at 2.3. A prolactin level was also drawn on 11/19/2018, after the patient had a seizure, and it was 70.0. As mentioned earlier, Mr. Mccann experienced a seizure on 11/19/2018. I ordered a CT of the head without contrast following this incident, and it showed no evidence of bleeding or trauma and no mass effect. CONSULTATIONS None. MEDICATIONS Mr. Mccann was placed on the CIWA protocol, but required only a relatively small dose of diazepam based on the protocol. He also started Zoloft for depression, given his complaints about depressed mood. He tolerated these treatments well. We also continued trazodone 50 to 150 mg at bedtime as needed for sleep. HOSPITAL COURSE Mr. Mccann easily progressed through detox, but did experience an epileptic event on the morning of 11/19/2018, as mentioned above. We gave him an additional 20 mg of diazepam that morning and then 10 later on that day, with no further incidents. His withdrawal symptoms were controlled, and he also verbalized improved mood and positive thoughts about the future. CONDITION ON DISCHARGE The treatment team and I met with Mr. Mccann on the morning of 11/20/2018. At this time, he is experiencing a slight amount of frustration because he wants to be released from the hospital and get back to his life. He believes that he has some chronic low-level depression, and this is exacerbated by his social isolation and not being busy enough when he is not working. He was denying any suicidal thoughts, however. He was tolerating the Zoloft well and agreed to continue it, as well as to continue going to and getting aftercare at [facility]. We also developed a release plan to encourage him reconnecting with his family and social support network, and also to get back to . DISPOSITION Mr. Mccann was released on the morning of 11/20/2018 with a plan to follow up with [facility] for counseling and medications, attend daily, use the crisis line as needed, as well as to continue Zoloft 50 mg daily. He has a prescription at home for trazodone 150 mg, to be taken one third to one tablet at bedtime as needed for sleep. We also encouraged him to start going to the [facility] for some regular physical exercise. YULI
== END 2018-11-20 10:15 | disposition home or self-care (01) | DRG 897 ==
LOC: BHS 19:18
PROVIDERS: ADMIT Psychiatry & Neurology Psychiatry; ATTEND Psychiatry & Neurology Psychiatry
DX: F10.230 Alcohol dependence with withdrawal, uncomplicated (principal); E87.1 Hypo-osmolality and hyponatremia; F34.1 Dysthymic disorder; F10.288 Alcohol dependence with other alcohol-induced disorder; Y90.3 Blood alcohol level of 60-79 mg/100 ml; R56.9 Unspecified convulsions; Z81.1 Family history of alcohol abuse and dependence; Z81.8 Family history of other mental and behavioral disorders
CPT/HCPCS: 36415; 36416; 70450; 80305; 81001; 82040; 82247; 82310; 82374; 82435; 82565; 82947; 82948; 83735; 84075; 84132; 84146; 84155; 84295; 84450; 84460; 84520

== ENCOUNTER 2019-02-01 18:56 | Emergency (ER) | payer OTHER ==
[2015-02-02 09:41] VITALS: Wt 81.6 kg
[~2019-02-01 18:56] MED LIST changes: +SERT-1 PO
--- NOTE | 2019-02-01 19:25 | ER Report ---
History and Physical Time Seen By MD: 19:25 Hx. of Stated Complaint: PT REPORTS ETOH DETOX S/S HPI/ROS CHIEF COMPLAINT: alcohol withdrawal HISTORY OF PRESENT ILLNESS: This is a 63 year old male. He is having shakiness from alcohol withdrawal. Had been drinking about a pint of whiskey a day during the weekend. Normal a few beers a day. Was trying Thursday and today to see if he could stop, but feeling too shaky. Uses marijuana every week or so. No other drugs used. He has no other recent problems or illnesses. Has been [facility] in the past. Had one episode of withdrawal in the past with seizures, but no hallucinations and no seizures today. Allergies: Coded Allergies: codeine (Verified Allergy, Mild, RASH, 02/01/19) ITCHING AND RASH REACTION oxycodone (Verified Allergy, Unknown, 02/01/19) itching rash Home Meds Reported Medications Sertraline Hcl (ZOLOFT) 50 Mg Tablet, 1 TAB PO QDAY, TAB 11/20/18 Trazodone Hcl (TRAZODONE HCL) 150 Mg Tablet, 50-150 MG PO QHS TAKE ON THIRD TO ONE FULL TABLET (50-150 MG) ABOUT AN HOUR BEFORE YOU PLAN TO GO TO SLEEP. 09/17/18 Reviewed Nurses Notes: Yes Hx Smoking: Yes Smoking Status: Former Smoker Exposure to Second Hand Smoke?: No Hx Substance Use Disorder: Yes (marijuana) Hx Alcohol Use: Yes Constitutional Vital Sign - Last 24 Hours 02/01/19 02/01/19 02/01/19 02/01/19 19:00 20:03 20:15 20:30 Temp 98.3 Pulse 80 78 87 Resp 16 B/P (MAP) 151/97 158/80 (106) 147/73 (97) Pulse Ox 95 92 90 O2 Delivery Room Air 02/01/19 02/01/19 02/01/19 02/01/19 20:45 21:00 21:20 21:30 Pulse 79 82 76 B/P (MAP) 143/81 (101) Pulse Ox 90 91 91 Physical Exam General Appearance: Alert, shaky from withdrawal. Eyes: Pupils equal and round no injection. ENT: Normal oral mucosa. Moist mucous membranes. Neck: Neck is supple and non tender. Respiratory: Chest is non tender, lungs are clear to auscultation. Cardiac: regular rate and rhythm Gastrointestinal: Abdomen is soft and non tender, bowel sounds normal. Musculoskeletal: Extremities have full range of motion. Skin: No rashes or lesions. Neuro: Alert and oriented x3, no focal deficits, just tremulous at this time. DIFFERENTIAL DIAGNOSIS: After history and physical exam differential diagnosis was considered for alcohol withdrawal. Medical Decision Making Data Points Result Diagram: 02/01/19200202/01/192002 Laboratory Hematology Test 02/01/19 20:03 02/01/19 21:03 Red Blood Count 4.55 M/uL (4.00-5.60) Mean Corpuscular Volume 100.9 fL (80.0-96.0) Mean Corpuscular Hemoglobin 34.0 pg (26.0-33.0) Mean Corpuscular Hemoglobin Concent 33.7 g/dL (32.0-36.0) Red Cell Distribution Width 14.1 % (11.5-14.5) Mean Platelet Volume 7.6 fL (7.2-11.1) Neutrophils (%) (Auto) 78.4 % (39.4-72.5) Lymphocytes (%) (Auto) 11.7 % (17.6-49.6) Monocytes (%) (Auto) 8.5 % (4.1-12.4) Eosinophils (%) (Auto) 0.2 % (0.4-6.7) Basophils (%) (Auto) 1.2 % (0.3-1.4) Nucleated RBC Relative Count (auto) 0.0 /100WBC Neutrophils # (Auto) 4.3 K/uL (2.0-7.4) Lymphocytes # (Auto) 0.6 K/uL (1.3-3.6) Monocytes # (Auto) 0.5 K/uL (0.3-1.0) Eosinophils # (Auto) 0.0 K/uL (0.0-0.5) Basophils # (Auto) 0.1 K/uL (0.0-0.1) Nucleated RBC Absolute Count (auto) 0.00 K/uL Sodium Level 134 mmol/L (137-145) Potassium Level 4.2 mmol/L (3.5-5.0) Chloride Level 100 mmol/L (98-107) Carbon Dioxide Level 19 mmol/L (22-30) Blood Urea Nitrogen 13 mg/dl (9-21) Creatinine 0.80 mg/dl (0.66-1.25) Glomerular Filtration Rate Calc > 60.0 Random Glucose 90 mg/dl (75-110) Calcium Level 9.1 mg/dl (8.4-10.2) Magnesium Level 2.0 mg/dl (1.7-2.2) Total Bilirubin 0.7 mg/dl (0.2-1.3) Aspartate Amino Transf (AST/SGOT) 44 U/L (0-35) Alanine Aminotransferase (ALT/SGPT) 23 U/L (0-56) Alkaline Phosphatase 69 U/L (0-126) Total Protein 7.3 g/dl (6.3-8.2) Albumin 4.5 g/dl (3.5-5.0) Salicylates Level < 10 mg/L Salicylate Last Dose Date unk Acetaminophen Level < 10 ug/ml Serum Alcohol < 10 mg/dl Urine Color Yellow Urine Clarity Clear Urine pH 5.0 pH (4.8-9.5) Urine Specific Leeper 1.019 Urine Protein Negative mg/dL (NEGATIVE) Urine Glucose (UA) Negative mg/dL (NEGATIVE) Urine Ketones 80 mg/dL (NEGATIVE) Urine Blood Negative (NEGATIVE) Urine Nitrite Negative (NEGATIVE) Urine Bilirubin Negative (NEGATIVE) Urine Urobilinogen 1.0 mg/dL (0.2-1.9) Urine Leukocyte Esterase Trace (NEGATIVE) Urine RBC 1 /HPF (0-2/HPF) Urine WBC 7 /HPF (0-5/HPF) Urine Squamous Epithelial Cells Moderate /LPF (</=FEW) Urine Bacteria Negative /HPF (NONE-FEW) Urine Mucus Few /HPF (NONE-FEW) Urine Opiates Screen Negative Urine Barbiturates Screen Negative Ur Tricyclic Antidepressants Screen Negative Urine Phencyclidine Screen Negative Urine Amphetamines Screen Positive Urine Benzodiazepines Screen Negative Urine Cocaine Screen Negative Urine Cannabinoids Screen Positive Chemistry Test 02/01/19 20:03 02/01/19 21:03 White Blood Count 5.5 k/uL (4.5-11.0) Red Blood Count 4.55 M/uL (4.00-5.60) Hemoglobin 15.5 g/dL (14.0-18.0) Hematocrit 45.9 % (42.0-52.0) Mean Corpuscular Volume 100.9 fL (80.0-96.0) Mean Corpuscular Hemoglobin 34.0 pg (26.0-33.0) Mean Corpuscular Hemoglobin Concent 33.7 g/dL (32.0-36.0) Red Cell Distribution Width 14.1 % (11.5-14.5) Platelet Count 201 K/uL (150-450) Mean Platelet Volume 7.6 fL (7.2-11.1) Neutrophils (%) (Auto) 78.4 % (39.4-72.5) Lymphocytes (%) (Auto) 11.7 % (17.6-49.6) Monocytes (%) (Auto) 8.5 % (4.1-12.4) Eosinophils (%) (Auto) 0.2 % (0.4-6.7) Basophils (%) (Auto) 1.2 % (0.3-1.4) Nucleated RBC Relative Count (auto) 0.0 /100WBC Neutrophils # (Auto) 4.3 K/uL (2.0-7.4) Lymphocytes # (Auto) 0.6 K/uL (1.3-3.6) Monocytes # (Auto) 0.5 K/uL (0.3-1.0) Eosinophils # (Auto) 0.0 K/uL (0.0-0.5) Basophils # (Auto) 0.1 K/uL (0.0-0.1) Nucleated RBC Absolute Count (auto) 0.00 K/uL Glomerular Filtration Rate Calc > 60.0 Calcium Level 9.1 mg/dl (8.4-10.2) Magnesium Level 2.0 mg/dl (1.7-2.2) Total Bilirubin 0.7 mg/dl (0.2-1.3) Aspartate Amino Transf (AST/SGOT) 44 U/L (0-35) Alanine Aminotransferase (ALT/SGPT) 23 U/L (0-56) Alkaline Phosphatase 69 U/L (0-126) Total Protein 7.3 g/dl (6.3-8.2) Albumin 4.5 g/dl (3.5-5.0) Salicylates Level < 10 mg/L Salicylate Last Dose Date unk Acetaminophen Level < 10 ug/ml Serum Alcohol < 10 mg/dl Urine Color Yellow Urine Clarity Clear Urine pH 5.0 pH (4.8-9.5) Urine Specific Leeper 1.019 Urine Protein Negative mg/dL (NEGATIVE) Urine Glucose (UA) Negative mg/dL (NEGATIVE) Urine Ketones 80 mg/dL (NEGATIVE) Urine Blood Negative (NEGATIVE) Urine Nitrite Negative (NEGATIVE) Urine Bilirubin Negative (NEGATIVE) Urine Urobilinogen 1.0 mg/dL (0.2-1.9) Urine Leukocyte Esterase Trace (NEGATIVE) Urine RBC 1 /HPF (0-2/HPF) Urine WBC 7 /HPF (0-5/HPF) Urine Squamous Epithelial Cells Moderate /LPF (</=FEW) Urine Bacteria Negative /HPF (NONE-FEW) Urine Mucus Few /HPF (NONE-FEW) Urine Opiates Screen Negative Urine Barbiturates Screen Negative Ur Tricyclic Antidepressants Screen Negative Urine Phencyclidine Screen Negative Urine Amphetamines Screen Positive Urine Benzodiazepines Screen Negative Urine Cocaine Screen Negative Urine Cannabinoids Screen Positive Toxicology Test 02/01/19 20:03 02/01/19 21:03 Salicylates Level < 10 mg/L Salicylate Last Dose Date unk Acetaminophen Level < 10 ug/ml Serum Alcohol < 10 mg/dl Urine Opiates Screen Negative Urine Barbiturates Screen Negative Ur Tricyclic Antidepressants Screen Negative Urine Phencyclidine Screen Negative Urine Amphetamines Screen Positive Urine Benzodiazepines Screen Negative Urine Cocaine Screen Negative Urine Cannabinoids Screen Positive Urinalysis Test 02/01/19 21:03 Urine Color Yellow Urine Clarity Clear Urine pH 5.0 pH (4.8-9.5) Urine Specific Leeper 1.019 Urine Protein Negative mg/dL (NEGATIVE) Urine Glucose (UA) Negative mg/dL (NEGATIVE) Urine Ketones 80 mg/dL (NEGATIVE) Urine Blood Negative (NEGATIVE) Urine Nitrite Negative (NEGATIVE) Urine Bilirubin Negative (NEGATIVE) Urine Urobilinogen 1.0 mg/dL (0.2-1.9) Urine Leukocyte Esterase Trace (NEGATIVE) Urine RBC 1 /HPF (0-2/HPF) Urine WBC 7 /HPF (0-5/HPF) Urine Squamous Epithelial Cells Moderate /LPF (</=FEW) Urine Bacteria Negative /HPF (NONE-FEW) Urine Mucus Few /HPF (NONE-FEW) ED Course/Re-evaluation Clinical Indication for ER IV: IV Access ED Course IV started and given a Banana bag. Also Ativen 2mg IV which helped the withdrawal symptoms. Labs positive for cannabanoids and amphetamines. Otherwise unremarkable. Discussed with Dr. Smiley. Decision to Disposition Date: Feb 01, 2019 Decision to Disposition Time: 22:24 Depart Departure Latest Vital Signs Vital Signs Date Time Temp Pulse Resp B/P (MAP) Pulse Ox O2 Delivery O2 Flow Rate FiO2 02/01/19 21:30 143/81 (101) 02/01/19 21:20 76 91 02/01/19 19:00 98.3 16 Room Air Impression: Primary Impression: Alcohol use disorder, severe, dependence Condition: Improved Disposition: XFER TO [facility] MAURIZIO WILLSON MD Feb 01, 2019 19:25
[2019-02-01] MEDS ORDERED: THIAMINE HCL(*) 200 MG/2 ML IN 100 MG, FOLIC ACID(*) 50 MG/10 ML INJ 1 MG, MULTIVITAMIN... IV ONE ×2 (19:55→20:00)
[2019-02-01] MEDS ORDERED: LORazepam 2 MG/ML VIAL IVP ONE (19:55)
[2019-02-01 20:24] LABS: PLATELET COUNT, AUTOMATED 201 K/uL (150-450)
[2019-02-01 21:30] VITALS: BP 143/81
== END 2019-02-01 23:45 ==
LOC: ER 19:40
DX: F10.230 Alcohol dependence with withdrawal, uncomplicated (principal); F15.10 Other stimulant abuse, uncomplicated; F12.10 Cannabis abuse, uncomplicated
CPT/HCPCS: 80305; 80320; 80329; 81001; 83735; 84443; 85025; 96365; 96375; 99284; J2060; J3411; J7030; 82040; 82247; 82310; 82374; 82435; 82565; 82947; 84075; 84132; 84155; 84295; 84450; 84460; 84520

== ENCOUNTER 2019-02-01 23:03 | Inpatient (IN) | payer OTHER ==
[2015-02-02 09:41] VITALS: Ht 172.7 cm; Wt 81.6 kg
[~2019-02-01] VITALS: Ht 172.7 cm; Wt 81.6 kg
[2019-02-01] MEDS ORDERED: MAG HYD/AL HYD/SIMETH 30ML UDC PO PRN (23:10)
[2019-02-01] MEDS ORDERED: traZODone HCL 50 MG TAB PO PRN (23:10)
[2019-02-01] MEDS ORDERED: DIAZEPAM 10 MG TAB PO PRN (23:10)
[2019-02-01] MEDS ORDERED: ACETAMINOPHEN 325 MG TAB PO PRN (23:10)
[2019-02-01 23:16] VITALS: BP 129/70
[2019-02-02 03:30] VITALS: BP 124/72
[2019-02-02 08:14] VITALS: BP 118/76
[2019-02-02] MEDS: MULTIVITAMINS TAB PO SCH (08:19)
[2019-02-02] MEDS: FOLIC ACID 1 MG TAB PO SCH (08:19)
[2019-02-02] MEDS: SERTRALINE HCL 50 MG TAB PO SCH (08:19)
[2019-02-02] MEDS: THIAMINE HCL 100 MG TAB PO SCH (08:19)
[2019-02-02] MEDS ORDERED: DIAZEPAM 10 MG TAB PO ONE ×2 (11:45→21:00)
[2019-02-02 12:38] VITALS: BP 144/81
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
[2019-02-02 20:49] VITALS: BP 117/72
[2019-02-03 05:35] VITALS: BP 95/53
[2019-02-03] MEDS: SERTRALINE HCL 50 MG TAB PO SCH (08:34)
[2019-02-03] MEDS: THIAMINE HCL 100 MG TAB PO SCH (08:35)
[2019-02-03] MEDS: FOLIC ACID 1 MG TAB PO SCH (08:35)
[2019-02-03] MEDS: MULTIVITAMINS TAB PO SCH (08:35)
[2019-02-03] MEDS ORDERED: DIAZEPAM 5 MG TAB PO ONE (09:00)
--- NOTE | 2019-02-03 17:45 | BHS Discharge Summary ---
[facility] Discharge Summary Znjc-[id number] Encounter Date: Feb 03, 2019 Jyzu-pe-Hedu Encounter Time: 10:00 Reason-Hosp/Final Diag (DSM-V): (1) Alcohol use disorder, severe, dependence Status: Chronic Hospital Course & Plan: The patient was seen on February 02, 2019, at 11 a.m. for this history and physical. CHIEF COMPLAINT "I was trying detox myself at home, but I really wasn't feeling good." HISTORY OF PRESENT ILLNESS This is the ninth detox admission for Mr. Mccann who is here as a voluntary patient and who has a history of alcohol use disorder, severe. The patient was last hospitalized on [facility] in the middle of October of this year. He went home and stayed sober for about three weeks. Then, he started drinking a little bit of beer, and he says that he did attend a couple of AA meetings. He did also go to [facility] twice to complete his intake, and a therapist was assigned to him, but he never went in because he felt like he was doing well at that time. However, over the past couple weeks, his alcohol intake has slowly increased. Last week, he drank more than beer than usual, and then on the weekend, he added a pint of [employer] Whiskey on Thursday and Thursday. Thursday and Thursday, he was trying to detox himself by drinking just a little bit of beer every now and then, but he became tremulous, he was vomiting, not eating, nauseated, and was afraid that he could have a seizure again since he had one du ring his hospital stay the last time. Therefore, he presented voluntarily to the Emergency Room to request detox. HOSPITAL COURSE Pt was admitted to [facility] and detoxed via the CIWA protocol using valium; detox was uncomplicated. He had a total of 35 mg of valium. He attended groups and individual therapies. We encouraged him to try a rehab program but he was not interested. He identified not going to regular AA meetings and not going to outpatient therapy as triggers for his relapse. He never had any suicidal ideation. He was maintained on his zoloft 50 mg am and trazodone at HS. He was discharged in stable and improved condition to follow up at [facility] and with AA meetings. (2) Persistent depressive disorder Physical Exam Latest Vital Signs Vital Signs 02/02/19 02/02/19 02/03/19 03:30 20:49 05:35 Temp 97.9 Pulse 77 Resp 16 B/P (MAP) 95/53 (67) Pulse Ox 85 O2 Delivery Room Air O2 Flow Rate 2.0 Mental Status Exam General Appearance: Casual, Well Groomed, Good Eye Contact, Cooperative, Polite, Good Interaction Speech: Clear, Spontaneous, Normal Rate, Normal Rhythm, Normal Volume, Normal Tone Mood: Euthymic Affect: Full and Appropriate Thought Process: Organized, Logical, Goal Directed Thought Content: No Suicidal Ideation, No Homicidal Ideation, No Delusions, No Auditory Halllucinations, No Visual Hallucinations, No Thought Broadcasting, No Ideas of Reference, No Obsessions, No Compulsions, No Other Sensorium: Clear Cognition: Alert & Oriented-Person, Alert & Oriented-Place, Alert & Oriented- Time, [id number]-[id number]-[id number] Memory: Immediate, Recent, Remote Intelligence: Average Insight Judgment: Fair Departure Result Diagram: 02/03/19644 Item Value Date Time Sodium Level 136 mmol/L L 02/03/19644 Potassium Level 3.7 mmol/L 02/03/1945 Chloride Level 105 mmol/L 02/03/1945 Carbon Dioxide Level 27 mmol/L 02/03/1945 Blood Urea Nitrogen 11 mg/dl 02/03/1945 Creatinine 0.90 mg/dl 02/03/19644 Glomerular Filtration Rate Calc > 60.0 02/03/1945 Random Glucose 107 mg/dl 02/03/1945 Hemoglobin A1c 5.7 % 02/03/1945 Calcium Level 8.8 mg/dl 02/03/1945 Total Bilirubin 0.7 mg/dl 02/03/1945 Aspartate Amino Transf (AST/SGOT) 43 U/L H 02/03/19644 Alanine Aminotransferase (ALT/SGPT) 36 U/L 02/03/1945 Alkaline Phosphatase 54 U/L 02/03/19644 Total Protein 5.8 g/dl L 02/03/19644 Albumin 3.4 g/dl L 02/03/19644 White Blood Count 5.5 k/uL 02/01/192002 Red Blood Count 4.55 M/uL 02/01/192002 Hemoglobin 15.5 g/dL 02/01/192002 Hematocrit 45.9 % 02/01/192002 Mean Corpuscular Volume 100.9 fL H 02/01/192002 Mean Corpuscular Hemoglobin 34.0 pg H 02/01/192002 Mean Corpuscular Hemoglobin Concent 33.7 g/dL 02/01/192002 Red Cell Distribution Width 14.1 % 02/01/192002 Platelet Count 201 K/uL 02/01/192002 Urine Color Yellow 02/01/192102 Urine Clarity Clear 02/01/192102 Urine pH 5.0 pH 02/01/192102 Urine Specific [place] 1.019 02/01/192102 Urine Protein Negative mg/dL 02/01/192102 Urine Glucose (UA) Negative mg/dL 02/01/192102 Urine Ketones 80 mg/dL H 02/01/192102 Urine Blood Negative 02/01/192102 Urine Nitrite Negative 02/01/192102 Urine Bilirubin Negative 02/01/192102 Urine Urobilinogen 1.0 mg/dL 02/01/192102 Urine Leukocyte Esterase Trace H 02/01/192102 Urine RBC 1 /HPF 02/01/192102 Urine WBC 7 /HPF 02/01/192102 Urine Squamous Epithelial Cells Moderate /LPF H 02/01/192102 Urine Transitional Epithelial Cells Few /LPF 11/18/18 0000 Urine Bacteria Negative /HPF 02/01/192102 Urine Hyaline Casts Many /LPF H 10/23/17 1816 Urine Mucus Few /HPF 02/01/192102 Salicylates Level < 10 mg/L 02/01/192002 Salicylate Last Dose Date unk 02/01/192002 Urine Opiates Screen Negative 02/01/192102 Acetaminophen Level < 10 ug/ml 02/01/192002 Urine Barbiturates Screen Negative 02/01/192102 Ur Tricyclic Antidepressants Screen Negative 02/01/192102 Urine Phencyclidine Screen Negative 02/01/192102 Urine Amphetamines Screen Positive 02/01/192102 Urine Benzodiazepines Screen Negative 02/01/192102 Urine Cocaine Screen Negative 02/01/192102 Urine Cannabinoids Screen Positive 02/01/192102 Serum Alcohol < 10 mg/dl 02/01/19 2003 Condition: Improved Discharge to: Home Discharge Instructions Home Meds Reported Medications Sertraline Hcl (ZOLOFT) 50 Mg Tablet, 1 TAB PO QDAY, TAB 11/20/18 Trazodone Hcl (TRAZODONE HCL) 150 Mg Tablet, 50 MG PO QHS TAKE ABOUT AN HOUR BEFORE YOU GO TO SLEEP. PLAN TO GO TO SLEEP. 09/17/18 Multpiple Antipsychotics Used: No Diet: Regular Activity: As Tolerated Special Instructions: Abstain from alcohol & all illicit substances. Take medications as prescribed. Follow up with outpatient provider for medication management. Follow up with outpatient therapy. Join AA. Obtain an AA Sponsor & utilize them. Call Crisis Line should symptoms return. PHILIPPE SELLERS MD Feb 03, 2019 17:45
== END 2019-02-03 09:30 | disposition home or self-care (01) | DRG 897 ==
LOC: BHS 23:03
PROVIDERS: ADMIT Psychiatry & Neurology Psychiatry; ATTEND Psychiatry & Neurology Psychiatry
PROC: HZ2ZZZZ Detoxification Services for Substance Abuse Treatment (ICD-10-PCS; principal; 2019-02-01)
DX: F10.20 Alcohol dependence, uncomplicated (principal); F34.1 Dysthymic disorder
CPT/HCPCS: 36415; 82040; 82247; 82310; 82374; 82435; 82565; 82947; 83036; 84075; 84132; 84155; 84295; 84450; 84460; 84520

== ENCOUNTER 2019-02-21 04:24 | Emergency (ER) | payer OTHER ==
[2015-02-02 09:41] VITALS: BMI 26.6
[2019-02-21] MEDS ORDERED: THIAMINE HCL(*) 200 MG/2 ML IN 100 MG, FOLIC ACID(*) 50 MG/10 ML INJ 1 MG, MULTIVITAMIN... IV ONE (04:37)
[2019-02-21 05:16] LABS: PLATELET COUNT, AUTOMATED 165 K/uL (150-450)
[2019-02-21 05:48] VITALS: BP 154/73
--- NOTE | 2019-02-23 08:59 | ER Long Form ---
History and Physical Time Seen By MD: 04:32 Hx. of Stated Complaint: PATIENT STATES THAT HE WANTS TO DETOX FROM ALCOHOL (JARETT TERRY DO) Time Seen By MD: 06:59 (JENELLE BANERJEE DO) HPI/ROS CHIEF COMPLAINT: Question detox from alcohol HISTORY OF PRESENT ILLNESS: 63-year-old male with relapsing alcoholism. He states he drank a lot of whiskey this weekend. He states he's been sober for several weeks. Patient was admitted to [facility] on 02/01 - 09/13 which was his 9th admission to detox. His previous admission for that was October 2018 REVIEW OF SYSTEMS: Respiratory: No cough, no dyspnea. Cardiovascular: No chest pain, no palpitations. Gastrointestinal: No vomiting, no abdominal pain. Musculoskeletal: No back pain. (JARETT TERRY DO) Allergies: Coded Allergies: codeine (Verified Allergy, Mild, RASH, 02/01/19) ITCHING AND RASH REACTION oxycodone (Verified Allergy, Unknown, 02/01/19) itching rash Home Meds Reported Medications Sertraline Hcl (ZOLOFT) 50 Mg Tablet, 1 TAB PO QDAY, TAB 11/20/18 Trazodone Hcl (TRAZODONE HCL) 150 Mg Tablet, 50 MG PO QHS TAKE ABOUT AN HOUR BEFORE YOU GO TO SLEEP. PLAN TO GO TO SLEEP. 09/17/18 Past Medical/Surgical History Patient has a past medical history of seizures related to alcohol detox, migraines, arthritis, marijuana abuse, alcohol abuse, depression. Patient has surgical history of right shoulder surgery, trigger finger, right knee surgery, Lasik surgery. (JAERTT TERRY DO) Reviewed Nurses Notes: Yes Old Medical Records Reviewed: Yes (JARETT TERRY DO) Hx Smoking: Yes Smoking Status: Former Smoker Exposure to Second Hand Smoke?: No Hx Substance Use Disorder: Yes (marijuana) Hx Alcohol Use: Yes (JARETT TERRY DO) Constitutional Vital Sign - Last 24 Hours 02/21/19 02/21/19 02/21/19 02/21/19 04:29 05:48 06:18 06:48 Temp 98.7 Pulse 83 86 Resp 18 17 B/P (MAP) 154/83 154/73 (100) Pulse Ox 85 94 93 94 O2 Delivery Room Air Nasal Cannula O2 Flow Rate 3 Intake and Output 4/02/20/19 02/21/19 14:59 22:59 06:59 Intake Total 1015.2 ml Balance 1015.2 ml (JENELLE BANERJEE DO) Physical Exam General Appearance: The patient is alert, has no immediate need for airway protection and no current signs of toxicity. Vital signs stable, afebrile, pulse ox normal, no acute distress HEENT: Pupils equal and round no injection. Anicteric sclera, oropharynx w ithout redness or exudate Respiratory: Chest is non tender, lungs are clear to auscultation. Cardiac: regular rate and rhythm Gastrointestinal: Abdomen is soft and non tender, no masses, bowel sounds normal., No hepatomegaly Musculoskeletal: Neck: Neck is supple and non tender. Extremities have full range of motion and are non tender. Skin: No rashes or lesions. DIFFERENTIAL DIAGNOSIS: After history and physical exam differential diagnosis was considered for depression including functional and major depression, situational depression, medication side effect, alcohol dependence, alcohol wit hdrawal, drugs and alcohol abuse. (JARETT TERRY DO) Medical Decision Making Data Points Result Diagram: 02/21/19 0440 02/21/19 0440 Laboratory Hematology Test 02/21/19 04:40 Red Blood Count 4.65 M/uL (4.00-5.60) Mean Corpuscular Volume 101.8 fL (80.0-96.0) Mean Corpuscular Hemoglobin 34.9 pg (26.0-33.0) Mean Corpuscular Hemoglobin Concent 34.3 g/dL (32.0-36.0) Red Cell Distribution Width 14.7 % (11.5-14.5) Mean Platelet Volume 7.4 fL (7.2-11.1) Neutrophils (%) (Auto) 47.5 % (39.4-72.5) Lymphocytes (%) (Auto) 37.5 % (17.6-49.6) Monocytes (%) (Auto) 12.9 % (4.1-12.4) Eosinophils (%) (Auto) 1.6 % (0.4-6.7) Basophils (%) (Auto) 0.5 % (0.3-1.4) Nucleated RBC Relative Count (auto) 0.0 /100WBC Neutrophils # (Auto) 1.8 K/uL (2.0-7.4) Lymphocytes # (Auto) 1.4 K/uL (1.3-3.6) Monocytes # (Auto) 0.5 K/uL (0.3-1.0) Eosinophils # (Auto) 0.1 K/uL (0.0-0.5) Basophils # (Auto) 0.0 K/uL (0.0-0.1) Nucleated RBC Absolute Count (auto) 0.00 K/uL Sodium Level 141 mmol/L (137-145) Potassium Level 3.5 mmol/L (3.5-5.0) Chloride Level 103 mmol/L (98-107) Carbon Dioxide Level 25 mmol/L (22-30) Blood Urea Nitrogen 8 mg/dl (9-21) Creatinine 0.90 mg/dl (0.66-1.25) Glomerular Filtration Rate Calc > 60.0 Random Glucose 108 mg/dl (75-110) Calcium Level 8.5 mg/dl (8.4-10.2) Magnesium Level 2.0 mg/dl (1.7-2.2) Total Bilirubin 0.3 mg/dl (0.2-1.3) Aspartate Amino Transf (AST/SGOT) 63 U/L (0-35) Alanine Aminotransferase (ALT/SGPT) 35 U/L (0-56) Alkaline Phosphatase 69 U/L (0-126) Total Protein 7.5 g/dl (6.3-8.2) Albumin 4.3 g/dl (3.5-5.0) Thyroid Stimulating Hormone (TSH) 1.29 uIU/ml (0.46-4.68) Salicylates Level < 10 mg/L Salicylate Last Dose Date unk Acetaminophen Level < 10 ug/ml Serum Alcohol 293 mg/dl Chemistry Test 02/21/19 04:40 White Blood Count 3.8 k/uL (4.5-11.0) Red Blood Count 4.65 M/uL (4.00-5.60) Hemoglobin 16.2 g/dL (14.0-18.0) Hematocrit 47.3 % (42.0-52.0) Mean Corpuscular Volume 101.8 fL (80.0-96.0) Mean Corpuscular Hemoglobin 34.9 pg (26.0-33.0) Mean Corpuscular Hemoglobin Concent 34.3 g/dL (32.0-36.0) Red Cell Distribution Width 14.7 % (11.5-14.5) Platelet Count 165 K/uL (150-450) Mean Platelet Volume 7.4 fL (7.2-11.1) Neutrophils (%) (Auto) 47.5 % (39.4-72.5) Lymphocytes (%) (Auto) 37.5 % (17.6-49.6) Monocytes (%) (Auto) 12.9 % (4.1-12.4) Eosinophils (%) (Auto) 1.6 % (0.4-6.7) Basophils (%) (Auto) 0.5 % (0.3-1.4) Nucleated RBC Relative Count (auto) 0.0 /100WBC Neutrophils # (Auto) 1.8 K/uL (2.0-7.4) Lymphocytes # (Auto) 1.4 K/uL (1.3-3.6) Monocytes # (Auto) 0.5 K/uL (0.3-1.0) Eosinophils # (Auto) 0.1 K/uL (0.0-0.5) Basophils # (Auto) 0.0 K/uL (0.0-0.1) Nucleated RBC Absolute Count (auto) 0.00 K/uL Glomerular Filtration Rate Calc > 60.0 Calcium Level 8.5 mg/dl (8.4-10.2) Magnesium Level 2.0 mg/dl (1.7-2.2) Total Bilirubin 0.3 mg/dl (0.2-1.3) Aspartate Amino Transf (AST/SGOT) 63 U/L (0-35) Alanine Aminotransferase (ALT/SGPT) 35 U/L (0-56) Alkaline Phosphatase 69 U/L (0-126) Total Protein 7.5 g/dl (6.3-8.2) Albumin 4.3 g/dl (3.5-5.0) Thyroid Stimulating Hormone (TSH) 1.29 uIU/ml (0.46-4.68) Salicylates Level < 10 mg/L Salicylate Last Dose Date unk Acetaminophen Level < 10 ug/ml Serum Alcohol 293 mg/dl Toxicology Test 02/21/19 04:40 Salicylates Level < 10 mg/L Salicylate Last Dose Date unk Acetaminophen Level < 10 ug/ml Serum Alcohol 293 mg/dl (JENELLE BANERJEE DO) ED Course/Re-evaluation Clinical Indication for ER IV: Hydration, IV Access ED Course Patient was admitted to an examination room. H&P was done. The differential diagnoses was considered. On clinical examination. Patient has no symptoms of withdrawal yet. Diagnostic studies were performed. He was treated with a banana bag IV. His blood alcohol returned at 293. His AST was elevated to 63. Patient's WBC came back low at 3.8, suggesting some bone marrow toxicity secondary to alcohol. MCV returned at 101.8. His case was discussed with Alix Reilly nurse practitioner on the behavioral health service. Decision to Disposition Date: Feb 21, 2019 Decision to Disposition Time: 04:43 (JARETT TERRY DO) Depart Departure Latest Vital Signs Vital Signs Date Time Temp Pulse Resp B/P (MAP) Pulse Ox O2 Delivery O2 Flow Rate FiO2 02/21/19 06:48 86 94 02/21/19 05:48 17 154/73 (100) Nasal Cannula 3 02/21/19 04:29 98.7 (JENELLE BANERJEE DO) Impression: Primary Impression: Alcohol use disorder, severe, dependence Condition: Improved Disposition: XFER TO [facility] JARETT TERRY DO Feb 21, 2019 04:37 JENELLE BANERJEE DO Feb 21, 2019 06:59 0437 6 GENI/MARIELA ROLDAN
== END 2019-02-21 07:30 | disposition home or self-care (01) ==
LOC: ER 04:37
DX: F10.20 Alcohol dependence, uncomplicated (principal); R79.89 Other specified abnormal findings of blood chemistry; Y90.8 Blood alcohol level of 240 mg/100 ml or more; F32.9 Major depressive disorder, single episode, unspecified
CPT/HCPCS: 80320; 80329; 83735; 84443; 85025; 96365; 99283; J3411; J3475; J7030; 82040; 82247; 82310; 82374; 82435; 82565; 82947; 84075; 84132; 84155; 84295; 84450; 84460; 84520

== ENCOUNTER 2019-02-26 10:13 | Emergency (ER) | payer OTHER ==
[2015-02-02 09:41] VITALS: Wt 81.6 kg
--- NOTE | 2019-02-26 10:28 | ER Report ---
History and Physical Time Seen By MD: 10:27 Hx. of Stated Complaint: PATIENT WANTING TO DETOX FROM ALCOHOL. TRYING TO DO IT HOME, BUT HASN'T BEEN ABLE TO HELP, WANTING TO GO TO [facility] FOR DETOX. HPI/ROS CHIEF COMPLAINT: Alcohol abuse asking for detox HISTORY OF PRESENT ILLNESS: A 63-year-old male once again returns emergency department this his 14th visit for alcohol abuse and intoxication he is been admitted to behavioral health 9 times to this institution for alcohol detoxification says he is drinking daily he is not going to his alcoholics anonymous meetings and wants to go back in for rehabilitation once again. Patient has no physical complaints at this time is denying chest pain shortness of breath nausea vomiting diarrhea fever chills. Patient states he drinks whiskey daily and his last one was yesterday says he gets nauseated when he doesn't drink denies any tremors or any do detox type symptomatology. Patient is not suicidal homicidal or gravely disabled REVIEW OF SYSTEMS: Respiratory: No cough, no dyspnea. Cardiovascular: No chest pain, no palpitations. Gastrointestinal: No vomiting, no abdominal pain. Musculoskeletal: No back pain. Remainder of the 14 system rev: Yes Allergies: Coded Allergies: codeine (Verified Allergy, Mild, RASH, 02/26/19) ITCHING AND RASH REACTION oxycodone (Verified Allergy, Unknown, 02/26/19) itching rash Home Meds Reported Medications Sertraline Hcl (ZOLOFT) 50 Mg Tablet, 1 TAB PO QDAY, TAB 11/20/18 Trazodone Hcl (TRAZODONE HCL) 150 Mg Tablet, 50 MG PO QHS TAKE ABOUT AN HOUR BEFORE YOU GO TO SLEEP. PLAN TO GO TO SLEEP. 09/17/18 Reviewed Nurses Notes: Yes Old Medical Records Reviewed: Yes Hx Smoking: Yes Smoking Status: Former Smoker Exposure to Second Hand Smoke?: No Hx Substance Use Disorder: Yes (marijuana) Hx Alcohol Use: Yes Constitutional Vital Sign - Last 24 Hours 02/26/19 02/26/19 02/26/19 02/26/19 10:18 10:28 10:30 10:43 Temp 99.0 Pulse 110 110 95 Resp 24 31 18 B/P (MAP) 151/91 134/79 (97) Pulse Ox 92 87 90 O2 Delivery Room Air 02/26/19 02/26/19 02/26/19 02/26/19 10:58 11:00 11:05 11:20 Pulse 89 97 87 Resp 11 20 15 B/P (MAP) 130/77 (94) Pulse Ox 93 90 88 Physical Exam General Appearance: The patient is alert, has no immediate need for airway protection and no current signs of toxicity. [ ] Eyes: Pupils equal and round no injection. Respiratory: Chest is non tender, lungs are clear to auscultation. Cardiac: regular rate and rhythm [ ] Gastrointestinal: Abdomen is soft and non tender, no masses, bowel sounds normal. Musculoskeletal: Neck: Neck is supple and non tender. Extremities have full range of motion and are non tender. Skin: No rashes or lesions. [ ] DIFFERENTIAL DIAGNOSIS: After history and physical exam differential diagnosis was considered for alcohol abuse Medical Decision Making Data Points Result Diagram: 02/26/19 1031 02/26/19 1031 Laboratory Hematology Test 02/26/19 10:31 02/26/19 11:41 Red Blood Count 4.86 M/uL (4.00-5.60) Mean Corpuscular Volume 102.6 fL (80.0-96.0) Mean Corpuscular Hemoglobin 34.5 pg (26.0-33.0) Mean Corpuscular Hemoglobin Concent 33.6 g/dL (32.0-36.0) Red Cell Distribution Width 15.2 % (11.5-14.5) Mean Platelet Volume 7.4 fL (7.2-11.1) Neutrophils (%) (Auto) 54.9 % (39.4-72.5) Lymphocytes (%) (Auto) 36.2 % (17.6-49.6) Monocytes (%) (Auto) 7.9 % (4.1-12.4) Eosinophils (%) (Auto) 0.7 % (0.4-6.7) Basophils (%) (Auto) 0.3 % (0.3-1.4) Nucleated RBC Relative Count (auto) 0.1 /100WBC Neutrophils # (Auto) 2.7 K/uL (2.0-7.4) Lymphocytes # (Auto) 1.8 K/uL (1.3-3.6) Monocytes # (Auto) 0.4 K/uL (0.3-1.0) Eosinophils # (Auto) 0.0 K/uL (0.0-0.5) Basophils # (Auto) 0.0 K/uL (0.0-0.1) Nucleated RBC Absolute Count (auto) 0.00 K/uL Sodium Level 139 mmol/L (137-145) Potassium Level 3.8 mmol/L (3.5-5.0) Chloride Level 102 mmol/L (98-107) Carbon Dioxide Level 18 mmol/L (22-30) Blood Urea Nitrogen 10 mg/dl (9-21) Creatinine 1.00 mg/dl (0.66-1.25) Glomerular Filtration Rate Calc > 60.0 Random Glucose 70 mg/dl (75-110) Calcium Level 8.8 mg/dl (8.4-10.2) Magnesium Level 2.0 mg/dl (1.7-2.2) Total Bilirubin 0.8 mg/dl (0.2-1.3) Aspartate Amino Transf (AST/SGOT) 76 U/L (0-35) Alanine Aminotransferase (ALT/SGPT) 44 U/L (0-56) Alkaline Phosphatase 90 U/L (0-126) Total Protein 7.7 g/dl (6.3-8.2) Albumin 4.6 g/dl (3.5-5.0) Salicylates Level < 10 mg/L Salicylate Last Dose Date unk Acetaminophen Level < 10 ug/ml Serum Alcohol 157 mg/dl Chemistry Test 02/26/19 10:31 02/26/19 11:41 White Blood Count 4.9 k/uL (4.5-11.0) Red Blood Count 4.86 M/uL (4.00-5.60) Hemoglobin 16.8 g/dL (14.0-18.0) Hematocrit 49.9 % (42.0-52.0) Mean Corpuscular Volume 102.6 fL (80.0-96.0) Mean Corpuscular Hemoglobin 34.5 pg (26.0-33.0) Mean Corpuscular Hemoglobin Concent 33.6 g/dL (32.0-36.0) Red Cell Distribution Width 15.2 % (11.5-14.5) Platelet Count 138 K/uL (150-450) Mean Platelet Volume 7.4 fL (7.2-11.1) Neutrophils (%) (Auto) 54.9 % (39.4-72.5) Lymphocytes (%) (Auto) 36.2 % (17.6-49.6) Monocytes (%) (Auto) 7.9 % (4.1-12.4) Eosinophils (%) (Auto) 0.7 % (0.4-6.7) Basophils (%) (Auto) 0.3 % (0.3-1.4) Nucleated RBC Relative Count (auto) 0.1 /100WBC Neutrophils # (Auto) 2.7 K/uL (2.0-7.4) Lymphocytes # (Auto) 1.8 K/uL (1.3-3.6) Monocytes # (Auto) 0.4 K/uL (0.3-1.0) Eosinophils # (Auto) 0.0 K/uL (0.0-0.5) Basophils # (Auto) 0.0 K/uL (0.0-0.1) Nucleated RBC Absolute Count (auto) 0.00 K/uL Glomerular Filtration Rate Calc > 60.0 Calcium Level 8.8 mg/dl (8.4-10.2) Magnesium Level 2.0 mg/dl (1.7-2.2) Total Bilirubin 0.8 mg/dl (0.2-1.3) Aspartate Amino Transf (AST/SGOT) 76 U/L (0-35) Alanine Aminotransferase (ALT/SGPT) 44 U/L (0-56) Alkaline Phosphatase 90 U/L (0-126) Total Protein 7.7 g/dl (6.3-8.2) Albumin 4.6 g/dl (3.5-5.0) Salicylates Level < 10 mg/L Salicylate Last Dose Date unk Acetaminophen Level < 10 ug/ml Serum Alcohol 157 mg/dl Toxicology Test 02/26/19 10:31 02/26/19 11:41 Salicylates Level < 10 mg/L Salicylate Last Dose Date unk Acetaminophen Level < 10 ug/ml Serum Alcohol 157 mg/dl Urinalysis Test 02/26/19 11:41 ED Course/Re-evaluation ED Course ED course medical decision making 63-year-old male returns once again the emergency department is been here 14 times alcohol abuse and intoxication is been admitted 9 times to behavioral health for detoxification returns asking for admission again he'll be admitted for behavioral health unit was seen and evaluated down here medically clear the emergency department patient be admitted for alcohol abuse and intoxication L: Was 153 claiming his last week was last evening. Decision to Disposition Date: February 26, 2019 Decision to Disposition Time: 11:49 Depart Departure Latest Vital Signs Vital Signs Date Time Temp Pulse Resp B/P (MAP) Pulse Ox O2 Delivery O2 Flow Rate FiO2 02/26/19 11:20 87 15 88 02/26/19 11:00 130/77 (94) 02/26/19 10:18 99.0 Room Air Impression: Primary Impression: Alcohol use disorder, severe, dependence Condition: Condition Unchanged Disposition: XFER TO [facility] JUAN DAVID ANDERSON MD February 26, 2019 10:28
[2019-02-26 10:39] LABS: PLATELET COUNT, AUTOMATED 138 K/uL (150-450)
[2019-02-26] MEDS ORDERED: ONDANSETRON 4 MG ODT TABDP SL ONE (11:00)
[2019-02-26 12:30] VITALS: BP 113/65
== END 2019-02-26 12:40 ==
LOC: ER 10:31
DX: F10.220 Alcohol dependence with intoxication, uncomplicated (principal); Y90.6 Blood alcohol level of 120-199 mg/100 ml
CPT/HCPCS: 36415; 80305; 80320; 80329; 81001; 83735; 84443; 85025; 99284; S0119; 82040; 82247; 82310; 82374; 82435; 82565; 82947; 84075; 84132; 84155; 84295; 84450; 84460; 84520

== ENCOUNTER 2019-02-26 12:01 | Inpatient (IN) | payer OTHER ==
[2015-02-02 09:41] VITALS: Ht 172.7 cm; Wt 78.9 kg
[~2019-02-26] VITALS: Ht 172.7 cm; Wt 78.9 kg
[2019-02-26] MEDS ORDERED: MAG HYD/AL HYD/SIMETH 30ML UDC PO PRN (12:30)
[2019-02-26 12:40] VITALS: BP 152/80
[2019-02-26] MEDS ORDERED: ONDANSETRON 4 MG ODT TABDP SL PRN (13:05)
[2019-02-26] MEDS: DIAZEPAM 10 MG TAB PO PRN ×3 (13:06→15:03)
[2019-02-26 17:10] VITALS: BP 118/70
[2019-02-26 23:04] VITALS: BP 116/73
[2019-02-27 01:45] VITALS: BP 115/72
[2019-02-27 05:41] LABS: PLATELET COUNT, AUTOMATED 98 K/uL (150-450)
[2019-02-27] MEDS: MULTIVITAMINS PO SCH (08:09)
[2019-02-27] MEDS: THIAMINE HCL 100 MG TAB PO SCH (08:09)
[2019-02-27] MEDS: FOLIC ACID 1 MG TAB PO SCH (08:09)
[2019-02-27 08:30] VITALS: BP 122/70
[2019-02-27] MEDS: DIAZEPAM 10 MG TAB PO PRN ×4 (09:50→22:57)
[2019-02-27] MEDS ORDERED: traZODone HCL 50 MG TAB PO PRN (10:15)
[2019-02-27 12:50] VITALS: BP 128/72
[2019-02-27 20:32] VITALS: BP 121/82
[2019-02-27 22:30] VITALS: BP 124/78
[2019-02-28 00:39] VITALS: BP 101/82
[2019-02-28] MEDS: DIAZEPAM 10 MG TAB PO PRN ×2 (00:40→22:01)
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
[2019-02-28 04:55] VITALS: BP 103/74
[2019-02-28 06:00] LABS: PLATELET COUNT, AUTOMATED 80 K/uL (150-450)
[2019-02-28] MEDS: THIAMINE HCL 100 MG TAB PO SCH (08:20)
[2019-02-28] MEDS: FOLIC ACID 1 MG TAB PO SCH (08:20)
[2019-02-28] MEDS: MULTIVITAMINS PO SCH (08:20)
[2019-02-28 08:30] VITALS: BP 104/62
[2019-02-28 14:51] VITALS: BP 122/72
[2019-02-28 18:55] VITALS: BP 100/65
--- NOTE | 2019-02-28 20:24 | BHS Progress Note ---
[facility] - Subjective Progress Notes Subjective Pt seen in treatment team with staff. Pt says he is feeling a little better today in terms of alcohol withdrawal. His last valium was at midnite. He is reporting depressed and anxious mood, talking about a lot of stressors that "cause" him to drink: broke up with girlfriend, mother elderly and ailing, son left the home they shared and not in contact with pt, daughter won't speak to him..... Pt is highly resistant to hear our comments that he is making excuses instead of admitting that he has alcoholism. He wants to go to rehab, which we do recommend due to repeated recent detoxes and inability to stay sober as outpatient. Will look into rehab options for him. Will continue CIWA protocol. Tomorrow consider restarting antidepressant. Suicidal Ideation: None Homicidal Ideation: None [facility] - Objective Physical Exam Vital Signs Vital Signs 02/27/19 02/27/19 02/28/19 01:45 20:32 14:51 Temp 98.5 Pulse 88 Resp 18 B/P (MAP) 122/72 (89) Pulse Ox 95 O2 Delivery Room Air O2 Flow Rate 2.0 Muscle Strength and Tone: WNL Gait and Station: Steady [facility] Medications Reviewed: Side Effects, Benefits of Medication, Risks Allergies Reviewed: Yes Mental Status Exam General Appearance: Casual, Good Eye Contact, Cooperative Speech: Clear, Normal Rate, Normal Rhythm, Delayed Mood: Dysthmic/Depressed Affect: Anxious, Other (frustrated) Thought Process: Organized, Logical, Goal Directed Thought Content: No Suicidal Ideation, No Homicidal Ideation, No Delusions, No Auditory Halllucinations, No Visual Hallucinations, No Thought Broadcasting, No Ideas of Reference, No Obsessions, No Compulsions; Other (a lot of themes of externalizing the blame for his addiction) Sensorium: Clear Cognition: Alert & Oriented-Person, Alert & Oriented-Place, Alert & Oriented- Time, Guwbu-Xtegkyzc-Ywnbfvjou Memory: Immediate, Recent, Remote Intelligence: Average Insight Judgment: Poor Result Diagram: 02/28/19 0554 02/28/19 0554 [facility] Assessment and Plan Htox-aj-[id number] Encounter Date: February 28, 2019 Plvu-ge-Qjra Encounter Time: 10:00 [facility] Plan: Necessary Precautions, Individual/Group Therapy, Admin/Titrate Meds, Educate Patient Tobacco Medications: Started Multpiple Antipsychotics Used: No Problems: (1) Alcohol use disorder, severe, dependence Status: Chronic (2) Persistent depressive disorder PHILIPPE SELLERS MD February 28, 2019 20:24
[2019-03-01 05:50] VITALS: BP 86/62
[2019-03-01] MEDS: MULTIVITAMINS PO SCH (08:25)
[2019-03-01] MEDS: FOLIC ACID 1 MG TAB PO SCH (08:25)
[2019-03-01] MEDS: THIAMINE HCL 100 MG TAB PO SCH (08:25)
--- NOTE | 2019-03-01 21:19 | BHS Discharge Summary ---
[facility] Discharge Summary Xgxk-[id number] Encounter Date: March 01, 2019 [id number]-[id number] Encounter Time: 10:30 Reason-Hosp/Final Diag (DSM-V): (1) Alcohol use disorder, severe, dependence Status: Chronic Hospital Course & Plan: HISTORY OF PRESENT ILLNESS This patient is a 63-year-old male who presented to the emergency department requesting admission to Behavioral Health Unit for alcohol detoxification. Patient reported that he has been drinking since last admissio n, which was in January 2019, up to six to eight beers per day plus one pint of whiskey. Patient has had multiple inpatient psychiatric admissions for alcohol detoxification as well as previous residential rehabilitations and engagement with AA meetings. It was recommended with his last discharge in January 2019 that he follow up with [facility] as well as AA meetings. Patient states that he did have an appointment with Marce, a therapist at [facility], although he states he "spaced out the appointment" and was in [place] the day of his appointment. He states that [facility] said they would reschedule and has not had reschedule date since that communication. He reports that he did do a pres creening at [facility] in the past. HOSPITAL COURSE Pt admitted to [facility] and detoxed with valium per CIWA protocol. Detox was uncomplicated. Pt cooperative in attending groups although said "I've learned all this before." Pt seems to maximize the role of life stressors and minimize the role of alcoholism in his drinking. He did state he wants to go to a 30 day rehab, and we did assisst him in calling programs, and he settled on [facility] in [place], to which we did fax an application--- we encouraged him to stay in hospital until he found out when bed available, but he declined. He will discharge home to go to the program when bed is available. We warned him of risk of relapse while out of hospital waitning for rehab bed. Pt discharged in stable condition. (2) Persistent depressive disorder Physical Exam Latest Vital Signs Vital Signs 02/27/19 03/01/19 01:45 05:50 Temp 99.0 Pulse 62 Resp 15 B/P (MAP) 86/62 (70) Pulse Ox 92 O2 Delivery Room Air O2 Flow Rate 2.0 Mental Status Exam General Appearance: Casual, Well Groomed, Good Eye Contact, Cooperative, Polite, Good Interaction Speech: Clear, Normal Rate, Normal Rhythm Mood: Euthymic Affect: Full and Appropriate Thought Process: Organized, Logical, Goal Directed Thought Content: No Suicidal Ideation, No Homicidal Ideation, No Delusions, No Auditory Halllucinations, No Visual Hallucinations, No Thought Broadcasting, No Ideas of Reference, No Obsessions, No Compulsions; Other (a lot of themes of externalizing the blame for his addiction) Sensorium: Clear Cognition: Alert & Oriented-Person, Alert & Oriented-Place, Alert & Oriented- Time, Fhzwh-Zwwpjuru-Qdacjjlim Memory: Immediate, Recent, Remote Intelligence: Average Insight Judgment: Fair Departure Result Diagram: 02/28/1955302/28/19 05 Item Value Date Time White Blood Count 5.1 k/uL 02/27/19 05 Red Blood Count 4.23 M/uL 02/27/19 0535 Hemoglobin 14.6 g/dL 02/27/19 0535 Hematocrit 43.5 % 02/27/19 05 Mean Corpuscular Volume 102.7 fL H 02/27/19 0535 Mean Corpuscular Hemoglobin 34.5 pg H 02/27/19 0535 Mean Corpuscular Hemoglobin Concent 33.6 g/dL 02/27/19 05 Red Cell Distribution Width 15.2 % H 02/27/19 05 Platelet Count 98 K/uL L 02/27/19 0535 Sodium Level 136 mmol/L L 02/28/19 0554 Potassium Level 3.3 mmol/L L 02/28/19 0554 Chloride Level 101 mmol/L 02/28/19 05 Carbon Dioxide Level 27 mmol/L 02/28/19 0554 Blood Urea Nitrogen 9 mg/dl 02/28/19 0554 Creatinine 0.80 mg/dl 02/28/19 0554 Glomerular Filtration Rate Calc > 60.0 02/28/19 0554 Random Glucose 94 mg/dl 02/28/19 0554 Calcium Level 8.7 mg/dl 02/28/19 05 Total Bilirubin 1.0 mg/dl 02/28/19 0554 Aspartate Amino Transf (AST/SGOT) 50 U/L H 02/28/19 0554 Alanine Aminotransferase (ALT/SGPT) 37 U/L 02/28/19 0554 Alkaline Phosphatase 57 U/L 02/28/19 0554 Total Protein 5.8 g/dl L 02/28/19 0554 Albumin 3.3 g/dl L 02/28/19 0554 Urine Color Yellow 02/26/19 1141 Urine Clarity Clear 02/26/19 1141 Urine pH 5.0 pH 02/26/19 1141 Urine Specific Ware 1.019 02/26/19 1141 Urine Protein 30 mg/dL 02/26/19 1141 Urine Glucose (UA) Negative mg/dL 02/26/19 1141 Urine Ketones 80 mg/dL H 02/26/19 1141 Urine Blood Small 02/26/19 1141 Urine Nitrite Negative 02/26/19 1141 Urine Bilirubin Negative 02/26/19 1141 Urine Urobilinogen 4.0 mg/dL H 02/26/19 1141 Urine Leukocyte Esterase Negative 02/26/19 1141 Salicylates Level < 10 mg/L 02/26/19 1031 Salicylate Last Dose Date unk 02/26/19 1031 Urine Opiates Screen Negative 02/26/19 1141 Acetaminophen Level < 10 ug/ml 02/26/19 1031 Urine Barbiturates Screen Negative 02/26/19 1141 Ur Tricyclic Antidepressants Screen Negative 02/26/19 1141 Urine Phencyclidine Screen Negative 02/26/19 1141 Urine Amphetamines Screen Negative 02/26/19 1141 Urine Benzodiazepines Screen Positive 02/26/19 1141 Urine Cocaine Screen Negative 02/26/19 1141 Urine Cannabinoids Screen Positive 02/26/19 1141 Serum Alcohol 157 mg/dl 02/26/19 1031 Tuberculin Skin Test 0 mm 06/08/14 1530 Condition: Improved Discharge to: Home Discharge Instructions Home Meds Reported Medications Sertraline Hcl (ZOLOFT) 50 Mg Tablet, 1 TAB PO QDAY, TAB 11/20/18 Trazodone Hcl (TRAZODONE HCL) 150 Mg Tablet, 50-150 MG PO QHS TAKE ABOUT AN HOUR BEFORE YOU GO TO SLEEP. PLAN TO GO TO SLEEP. 09/17/18 Multpiple Antipsychotics Used: No Special Instructions: Abstain from alcohol & all illicit substances. Take medications as prescribed. Follow up with outpatient provider for medication management. Follow up with residential program in [place], [place]. Follow up with outpatient therapy. Join AA. Obtain an AA Sponsor & utilize them. Call Crisis Line should symptoms return. PHILIPPE SELLERS MD March 01, 2019 21:19
== END 2019-03-01 16:26 | disposition home or self-care (01) | DRG 897 ==
LOC: BHS 12:01
PROVIDERS: ADMIT Nurse Practitioner Psychiatric/Mental Health; ATTEND Nurse Practitioner Psychiatric/Mental Health
DX: F10.230 Alcohol dependence with withdrawal, uncomplicated (principal); F34.1 Dysthymic disorder; F43.12 Post-traumatic stress disorder, chronic; Y90.6 Blood alcohol level of 120-199 mg/100 ml; Z81.1 Family history of alcohol abuse and dependence; Z81.8 Family history of other mental and behavioral disorders; Z63.79 Other stressful life events affecting family and household; Z91.19 Patient's noncompliance with other medical treatment and regimen; Z87.891 Personal history of nicotine dependence; Z88.5 Allergy status to narcotic agent
CPT/HCPCS: 36415; 82040; 82247; 82310; 82374; 82435; 82565; 82947; 84075; 84132; 84155; 84295; 84450; 84460; 84520; 85025